=== PATIENT | female | born 1990 | race African-American/Black ===

== ENCOUNTER 2016-09-01 23:33 | Outpatient (CLI) | payer MEDICAID ==
[2016-09-02 00:10] LABS: APPEARANCE,URINE SLIGHTLY-CLOUDY; BILIRUBIN,URINE NEGATIVE (NEGATIVE); GLUCOSE, URINE NEGATIVE (NEGATIVE); KETONES,URINE 80 mg/dL (NEGATIVE); LEUKOCYTE ESTERASE,URINE TRACE (NEGATIVE); NITRITE,URINE NEGATIVE (NEGATIVE); PROTEIN,URINE 100 mg/dL (NEGATIVE); UROBILINOGEN,URINE NEGATIVE mg/dL (<2.0)
[2016-09-02] MEDS ORDERED: RINGERS SOLUTION,LACTATED 1,000 ML IV ONE (00:41)
[2016-09-02] MEDS ORDERED: ONDANSETRON HCL INJ/PF 4 MG/2 ML SDV IV ONE (00:42)
[2016-09-02] MEDS ORDERED: ONDANSETRON HCL INJ/PF 4 MG/2 ML SDV ONE (00:50)
--- NOTE | 2016-09-02 04:46 | L&D Flow Sheet ---
LD Flowsheet Datetime Report Generated by CPN: 09/02/2016 04:45 Datetime: 09/02/2016 03:00 Patient Care Patient Care Comments: Pt in stable, ambulatory condition, off of unit. Care relinquished. (Shelia Ring, RN) Datetime: 09/02/2016 02:55 Teaching Comments: Pt verbalized understanding of discharge materials. Will follow up with [facility] this week at scheduled appointment. Was able to teach back reasons to return/symptoms to report to provider. Patient denies any questions, pain at this time. (Shelia Ring, RN) Datetime: 09/02/2016 02:52 Patient Care Patient Care Comments: 20-guage in left AC from EMS removed. Tip intact, pressure applied, band-aid applied. No redness, swelling or pain noted. (Shelia Ring, RN) Datetime: 09/02/2016 02:51 Uterine Activity Monitor Mode: External; Palpation (Shelia Ring, RN) Frequency (min): x1 (Shelia Ring, RN) Quality: Mild (Shelia Ring, RN) Duration (sec): 50 (Shelia Ring, RN) Resting Tone (Palpate): Relaxed (Shelia Ring, RN) Assessment A Monitor Mode: External US (Shelia Ring, RN) FHR Baseline Rate : 145 (Shelia Ring, RN) Variability: Moderate 6-25 bpm (Shelia Ring, RN) Accelerations: 15X15 (Shelia Ring, RN) Decelerations: None (Shelia Ring, RN) Pain Presence: None/Denies (Shelia Ring, RN) Pain Type: N/A (Shelia Ring, RN) Patient Care Patient Care Comments: Monitors removed to send patient home. (Shelia Ridley, RN) LaborFlag: Antepartum (QS system process) Datetime: 09/02/2016 02:41 Communication Communication: Provider Orders Received; Call/Page Placed to Provider (Shelia Ridley RN) Communication Comments: Call placed to Dr. Loya. Report to include official ultrasound report results, toco data, patient denies any further pain or pressure, FHR. Orders received to send patient home, follow up in the office as scheduled. (Shelia Ring, RN) Datetime: 09/02/2016 02:38 NBP Sys/Vero/Mean (mmHg): 115 (QS system process) : 63 (QS system process) : 81 (QS system process) Pulse: 83 (QS system process) Respirations: 20 (Shelia Ring, RN) Temperature (F): 97.8 (Shelia Ring, RN) Temperature (C): 36.6 (QS system process) Temperature Route: Oral (Shelia Ring, RN) LaborFlag: Antepartum (QS system process) Datetime: 09/02/2016 02:30 Uterine Activity Monitor Mode: External; Palpation (Shelia Ring, RN) Frequency (min): x2 (Shelia Ring, RN) Duration (sec): 40-60 (Shelia Ring, RN) Resting Tone (Palpate): Relaxed (Shelia Ring, RN) Assessment A Monitor Mode: External US (Shelia Ring, RN) FHR Baseline Rate : 145 (Shelia Ring, RN) Variability: Moderate 6-25 bpm (Shelia Ring, RN) Accelerations: None (Shelia Ring, RN) Decelerations: None (Shelia Ring, RN) Datetime: 09/02/2016 02:19 Monitor Interventions for FHR: Ultrasound Adjusted (Shelia Ring, RN) Comments: Audible movement (Shelia Ring, RN) Datetime: 09/02/2016 02:13 Patient Care Patient Care Comments: 1 liter LR finished. IV saline-locked (Shelia Ring, RN) Datetime: 09/02/2016 02:11 Patient Care Patient Care Comments: Pt states feeling "much better" and denies any pelvic pressure. (Shelia Ring, RN) Datetime: 09/02/2016 02:10 Patient Care Patient Care Comments: Extra warm blanket provided (Shelia Ring, RN) Datetime: 09/02/2016 01:42 Uterine Activity Monitor Mode: External; Palpation (Shelia Ring, RN) Frequency (min): none (Shelia Ring, RN) Resting Tone (Palpate): Relaxed (Shelia Ring, RN) Assessment A Monitor Mode: External US (Shelia Ring, RN) FHR Baseline Rate : 135 (Shelia Ring, RN) Variability: Moderate 6-25 bpm (Shelia Ring, RN) Accelerations: 15X15 (Shleia Ring, RN) Decelerations: None (Shelia Ring, RN) Datetime: 09/02/2016 01:33 NBP Sys/Vero/Mean (mmHg): 109 (QS system process) : 60 (QS system process) : 78 (QS system process) Pulse: 88 (QS system process) LaborFlag: Antepartum (QS system process) Datetime: 09/02/2016 01:30 Uterine Activity Monitor Mode: External; Palpation (Shelia Ring, RN) Frequency (min): none (Shelia Ring, RN) Resting Tone (Palpate): Relaxed (Shelia Ring, RN) Assessment A Monitor Mode: External US (Shelia Ring, RN) FHR Baseline Rate : 140 (Shelia Ring, RN) Variability: Moderate 6-25 bpm (Shelia Ring, RN) Accelerations: 15X15 (Shelia Ring, RN) Decelerations: None (Shelia Ring, RN) Datetime: 09/02/2016 01:03 NBP Sys/Vero/Mean (mmHg): 107 (QS system process) : 59 (QS system process) : 77 (QS system process) Pulse: 99 (QS system process) LaborFlag: Antepartum (QS system process) Datetime: 09/02/2016 01:01 Medications Antiemetics/Antacids: Zofran IV (mg) @ 8 (Shelia Ring, RN) Datetime: 09/02/2016 01:00 Uterine Activity Monitor Mode: External; Palpation (Shelia Ring, RN) Frequency (min): x1 with some uterine irritability (Shelia Ring, RN) Quality: Mild (Shelia Ring, RN) Duration (sec): 60 (Shelia Ring, RN) Resting Tone (Palpate): Relaxed (Shelia Ring, RN) Assessment A Monitor Mode: External US (Shelia Ring, RN) FHR Baseline Rate : 145 (Shelia Ring, RN) Variability: Moderate 6-25 bpm (Shelia Ring, RN) Accelerations: 15X15 (Shelia Ring, RN) Decelerations: None (Shelia Ring, RN) Datetime: 09/02/2016 00:50 Monitor Interventions for FHR: Ultrasound Adjusted (Shelia Ring, RN) Patient Care Patient Care Comments: Pt sitting up and vomiting. (Shelia Ring, RN) Datetime: 09/02/2016 00:49 Communication Communication: RN at Bedside (Shelia Ring, RN) Communication Comments: Audible movement. (Shelia Ring, RN) Datetime: 09/02/2016 00:36 Communication Communication: Provider Orders Received; Call/Page Placed to Provider (Shelia Ring, RN) Communication Comments: Call placed to Dr. Loya. Report to include urinalysis, relevant patient history, vital signs, patient complains of n/v/d with some pelvic pressure and back pain, toco data, FHR. Orders received to obtain cervical length, may give 8 mg zofran IV now, bolus 1 liter of LR now via IV infusion. Call provider with results of cervical length. (Shelia Ridley, KRISTEN) Datetime: 09/02/2016 00:33 NBP Sys/Vero/Mean (mmHg): 116 (QS system process) : 68 (QS system process) : 87 (QS system process) Pulse: 93 (QS system process) LaborFlag: Antepartum (QS system process) Datetime: 09/02/2016 00:30 Uterine Activity Monitor Mode: External; Palpation (Shelia Ring, RN) Frequency (min): x1 (Shelia Ring, RN) Quality: Mild (Shelia Ring, RN) Duration (sec): 70 (Shelia Ring, RN) Resting Tone (Palpate): Relaxed (Shelia Ring, RN) Assessment A Monitor Mode: External US (Shelia Ring, RN) FHR Baseline Rate : 145 (Shelia Ring, RN) Variability: Moderate 6-25 bpm (Shelia Ring, RN) Accelerations: 15X15 (Shelia Ring, RN) Decelerations: None (Shelia Ring, RN) Pain Presence: Intermittent (Shelia Ring, RN) Pain Type: Pressure (Shelia Ring, RN) Pain Location: Abdomen; Back (Shelia Ring, RN) Pain Relief Measures: Comfort Measures (Shelia Ring, RN) LaborFlag: Antepartum (QS system process) Datetime: 09/02/2016 00:11 NBP Sys/Vero/Mean (mmHg): 115 (QS system process) : 68 (QS system process) : 86 (QS system process) Pulse: 108 (QS system process) LaborFlag: Antepartum (QS system process) Datetime: 09/02/2016 00:03 NBP Sys/Vero/Mean (mmHg): 145 (QS system process) : 65 (QS system process) : 94 (QS system process) Pulse: 106 (QS system process) Respirations: 20 (Shelia Ring, RN) Temperature (F): 98.1 (Shelia Ring, RN) Temperature (C): 36.7 (QS system process) Temperature Route: Oral (Shelia Ring, RN) LaborFlag: Antepartum (QS system process) Datetime: 09/01/2016 23:52 Vital Signs Stage of : Antepartum (Shelia Ring, RN) Datetime: 09/01/2016 23:45 Pain Pain Scale: 0 (Shelia Ring, RN) Pain Presence: Intermittent (Shelia Ring, RN) Pain Type: Pressure (Shelia Ring, RN) Pain Location: Abdomen; Back (Shelia Ring, RN) Pain Goal: 1 (Shelia Ring, RN) Pain Relief Measures: Comfort Measures (Shelia Ring, RN) Vaginal Exam Membrane Status: Intact (Shelia Ring, RN) Vaginal Bleeding: None (Shelia Ring, RN) Maternal Assessment Level of Consciousness: Fully Conscious (Shelia Ring, RN) DTR's/Clonus: DTRs 2+; No Clonus (Shelia Ring, RN) Headache: Denies (Shelia Ring, RN) Breath Sounds, Left: Clear and Equal (Shelia Ring, RN) Breath Sounds, Right: Clear and Equal (Shelia Ring, RN) Nausea/Vomiting: Present (Annotations: Pt vomiting upon entering room. Pt stated starting at 1800 and daughter has had virus with vomiting) (Shelia Ring, RN) RUQ Epigastric Pain: Denies (Shelia Ring, RN) Teaching Instructional Method: Verbal; Patient Instructed; Verbalized Understanding (Shelia Ring, RN) Plan of Care: Plan of Care Discussed (Shelia Ring, RN) Unit Routine: [place] to Room; Call Alejandre; Bed; Handwashing; Monitoring; Safety/Fall Risk Prevention; Bathroom Privileges (Shelia Ridley RN) Related: Common Discomforts of ; Nutrition; Hydration; Activity and Rest (Shelia Ridley RN)
--- NOTE | 2016-09-02 04:46 | L&D Discharge Summary ---
OB Discharge Summary Datetime Report Generated by CPN: 09/02/2016 04:45 DISCHARGE DIAGNOSIS Diagnosis/Symptoms: False Labor Gestation: 26.3 Number of Babies in Womb: 1 Parity: 2 DIET/ACTIVITY/RESTRICTIONS Diet: Regular TEACHING/INSTRUCTIONS/REFERRALS Instructions Given To: Patient Instructions Understood: Patient Verbalized Understanding; Support Person Verbalized Understanding Referrals: None Educational Materials- Other: - Dehydration and - Gastroenteritis DISCHARGE INFORMATION Discharged AMA: No Discharge Date/Time: 09/02/2016 03:00 Discharged To: Home Discharge Provider Name: Dr. Loya Accompanied By: Self Discharge Method: Ambulatory Condition: Stable FOLLOW UP INFORMATION Follow Up With: [facility] Follow Up On: As Scheduled Follow Up Phone Number: [facility] - Comments: Signs and symptoms to report to provider to include vaginal bleeding, decreased movement, contractions that increase in frequency/duration/intensity, suspected SROM. Pt to follow up in the office as scheduled.
--- NOTE | 2016-09-02 04:46 | L&D Current Admission ---
Current Admit Datetime Report Generated by CPN: 09/02/2016 04:45 ADMISSION INFORMATION Chief Complaint: Back Pain; Nausea; Vomiting (09/01/2016 23:45:Shelia Ring, RN)
--- NOTE | 2016-09-02 04:46 | L&D General Admission ---
General Admit Datetime Report Generated by CPN: 09/02/2016 04:45 INFORMATION Patient Age: 25 (05/30/2016 08:18:QS system process) EDC: 12/05/2016 00:00 (09/01/2016 23:34:Selwyn Stinson RN) : 5 (09/01/2016 23:34:Selwyn Stinson RN) Para: 2 (09/02/2016 02:44:Shelia Ridley RN) Para: 2 (09/01/2016 23:34:Selwyn Stinson RN) Term: 1 (09/01/2016 23:34:Shelia Ridley RN) : 1 (09/01/2016 23:34:Shelia Ridley RN) Spontaneous Abortions: 2 (09/01/2016 23:34:Shelia Ridley RN) Induced Abortions: 0 (09/01/2016 23:34:Shelia Ridley RN) Livin (09/01/2016 23:34:Shelia Ridley RN) Cesareans: 2 (09/01/2016 23:34:Shelia Ring, RN) VBACs: 0 (09/01/2016 23:34:Shelia Ring, RN) Ectopic: 0 (09/01/2016 23:34:Shelia Ring, RN) Multiple Births: 0 (09/01/2016 23:34:Shelia Ring, RN) Baby, Number in Womb: 1 (09/02/2016 02:44:Shelia Ring, RN) Baby, Number in Womb: 1 (09/01/2016 23:34:Shelia Ring, RN) CARE Primary Cost [facility]: [facility] (09/01/2016 23:34:Shelia Ring RN) Month of 1st Visit: March (09/01/2016 23:34:Shelia Ridley RN) Adequate Care: Yes (09/01/2016 23:34:Shelia Ring RN) Height (in): 60 (09/01/2016 23:45:QS system process) ALLERGIES Medication Allergy: No (09/01/2016 23:34:Shelia Ridley RN) Medication Allergies: No Known Allergies (09/01/2016) (09/01/2016 23:44:QS system process) Medication Allergies: No Known Allergies (03/19/2015) (05/30/2016 08:18:QS system process) Latex Allergy: No Latex Allergies (09/01/2016 23:34:Shelia Ridley RN) Food Allergies: None (09/01/2016 23:34:Shelia Ridley RN) Environmental Allergies: None (09/01/2016 23:34:Shelia Ring, RN) COMMUNICATION Primary Language: Malay (09/01/2016 23:34:Shelia Ridley RN) Medical Tx Preferred Language: Malay (09/01/2016 23:34:Shelia Ring RN) Communication Barrier(s): None (09/01/2016 23:34:Shelia Ring, RN) DEMOGRAPHICS Address: [address] [place] [address] (06/20/2016 07:11:QS system process) Address: [address] [facility] [facility], [address] [place] [address] (05/30/2016 08:18:QS system process) Zipcode: [address] (05/30/2016 08:18:QS system process) Home (05/30/2016 08:18:QS system process) SSN: [id number] (05/30/2016 08:18:QS system process) Next of Kin Name: IAN ROQUE (05/30/2016 08:18:QS system process) Next of Kin (06/20/2016 07:11:QS system process) Next of Kin (05/30/2016 08:18:QS system process) Next of Kin Relationship: MO (05/30/2016 08:18:QS system process) Date of : 1990 (05/30/2016 08:18:QS system process) Marital Status: Single (05/30/2016 08:18:QS system process) Sex: Female (05/30/2016 08:18:QS system process) Race: (05/30/2016 08:18:QS system process) Ethnicity: Non- or (05/30/2016 08:18:QS system process) Oriental Orthodox: None (05/30/2016 08:18:QS system process) DRUG AND ALCOHOL USE Alcohol: No (09/01/2016 23:34:Shelia Ridley RN) Cigarettes: Never Smoker. [id number] (09/01/2016 23:34:Shelia Ridley RN) Marijuana: No (09/01/2016 23:34:Shelia Ridley RN) Cocaine: No (09/01/2016 23:34:Shelia Ridley RN) Other Illicit Drugs: No (09/01/2016 23:34:Shelia Ridley RN) VACCINE HISTORY Influenza Vaccine: No (09/01/2016 23:34:Shelia Ridley RN) Pneumococcal Vaccine: No (09/01/2016 23:34:Shelia Ridley RN) Tetanus Vaccine: No (09/01/2016 23:34:Shelia Ridley RN) Tdap Vaccine: Yes (09/01/2016 23:34:Shelia Ridley RN) Hepatitis B Vaccine: Yes (09/01/2016 23:34:Shelia Ridley RN) Grain Sampler: [facility] (09/01/2016 23:34:Shelia Ridley RN) Feeding Preference: Breast (09/01/2016 23:34:Shelia Ridley RN) Benefit of Breast Feed Discussed: Yes (09/01/2016 23:34:Shelia Ridley RN) Circumcision: N/A (09/01/2016 23:34:Shelia Ridley RN) Classes Attended: No (09/01/2016 23:34:Shelia Ridley RN) Tubal Ligation: No (09/01/2016 23:34:Shelia Ridley RN) Tubal Authorization Signed: N/A (09/01/2016 23:34:Shelia Ridley RN) Consent: N/A (09/01/2016 23:34:Shelia Ridley RN) Consent Signed: N/A (09/01/2016 23:34:Shelia Ridley RN) Pain Management Plans: Spinal (09/01/2016 23:34:Shelia Ridley RN) Cultural/Spritual Practice: No (09/01/2016 23:34:Shelia Ridley RN) Spir/Cult Dietary Needs: No (09/01/2016 23:34:Shelia Ridley RN) LIVING SITUATION/DISCHARGE PLAN Living Arrangements: Apartment (09/01/2016 23:34:Shelia Ridley RN) Adequate Access to:: Electric; Heat; Refrigeration; Plumbing/Running water; Phone; Transportation (09/01/2016 23:34:Shelia Ridley RN) WIC Program: Yes (09/01/2016 23:34:Shelia Ridley RN) Discharge Internet Ecommerce Specialist Person: Jason Cummings (09/01/2016 23:34:Shelia Ridley RN) Person to Help after Discharge: Jason Cummings (09/01/2016 23:34:Shelia Ridley RN) Currently Using Commun Resources: Yes (09/01/2016 23:34:Shelia Ridley RN) Specify Current Resource Used: Medicaid, food stamps (09/01/2016 23:34:Shelia Ridley RN) Adoption Requested: No (09/01/2016 23:34:Shelia Ridley RN) Pt Contact w/ Post : N/A (09/01/2016 23:34:Shelia Ridley RN) LABS Blood Type: O Positive (09/01/2016 23:34:Rojorge Martinez) Antibody Screen: Negative (09/01/2016 23:34:Shelia Ridley RN) Hemoglobin: 10.4 L (06/18/2016 10:40:QS system process) Hematocrit: 31.0 L (06/18/2016 10:40:QS system process) MCV: 79 L (06/18/2016 10:40:QS system process) RPR/VDRL: Nonreactive (09/01/2016 23:34:Ro Martinez) HIV Exposure Test: Negative (09/01/2016 23:34:Ro Martinez) Hepatitis B: Negative (09/01/2016 23:34:Shelia Ridley RN) Rubella: Immune (09/01/2016 23:34:Rojorge Martinez) OB/PREVIOUS HISTORY Previous Procedures: Ultrasound; NST; Cerclage (09/01/2016 23:34:Shelia Ridley RN) Current Procedures: Ultrasound; Cerclage (09/01/2016 23:34:Shelia Ridley RN) History of Previous : Yes (09/01/2016 23:34:Shelia Ridley RN) History of Gestational Diabetes: No (09/01/2016 23:34:Shelia Ridley RN) History of PIH: No (09/01/2016 23:34:Shelia Ridley RN) History of Incompetent Cervix: Yes (09/01/2016 23:34:Shelia Ridley RN) History of Placenta Previa/Abrup: No (09/01/2016 23:34:Shelia Ridley RN) History of Macrosomia: No (09/01/2016 23:34:Shelia Ridley RN) History of IUGR: No (09/01/2016 23:34:Shelia Ridley RN) History of Hemorrhage: No (09/01/2016 23:34:Shelia Ridley RN) History of Loss/Stillborn: No (09/01/2016 23:34:Shelia Ridley RN) History of : No (09/01/2016 23:34:Shelia Ridley RN) History of D (Rh) Sensitization: No (09/01/2016 23:34:Shelia Ridley RN) History Recurrent Loss/Stillborn: No (09/01/2016 23:34:Shelia Ridley RN) History Depression/PP Depression: No (09/01/2016 23:34:Shelia Ridley RN) History of Uterine Anomaly/ERIN: No (09/01/2016 23:34:Shelia iRdley RN) History of Infertility: No (09/01/2016 23:34:Shelia Ridley RN) History of ART Treatment: No (09/01/2016 23:34:Shelia Ridley RN) History of ERIN: No (09/01/2016 23:34:Shelia Ridley RN) Comments Obstetrical History: G1: 08/2010- primary c/s in [place] for FTP; male @ 37 weeks, 7#5oz G2: 2011- SAB _8 weeks G3: 05/2013- 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, [facility]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 G4: 01/2014 - repeat c/s at [facility]; female @ 26 weeks- PROM w/cerclage G5: current (cerclage placed 06/20/16; weekly p17 injections) (09/01/2016 23:34:Shelia Ridley RN) MEDICAL HISTORY Med Hx Diabetes: No (09/01/2016 23:34:Shelia Ridley RN) Med Hx Hypertension: No (09/01/2016 23:34:Shelia Ridley RN) Med Hx Heart Disease: No (09/01/2016 23:34:Shelia Ridley RN) Med Hx Autoimmune Disorder: No (09/01/2016 23:34:Shelia Ridley RN) Med Hx Kidney Disease/UTI: No (09/01/2016 23:34:Shelia Ridley RN) Med Hx Neurologic/Epilepsy: No (09/01/2016 23:34:Shelia Ridley RN) Med Hx Psychiatric Disorders: No (09/01/2016 23:34:Shelia Ridley RN) Med Hx Hepatitis/Liver Disease: No (09/01/2016 23:34:Shelia Ridley RN) Med Hx Varicosities/Phlebitis: No (09/01/2016 23:34:Shelia Ridley RN) Med Hx Thyroid Dysfunction: No (09/01/2016 23:34:Shelia Ridley RN) Med Hx Trauma/Violence: No (09/01/2016 23:34:Shelia Ridley RN) Med Hx Blood Transfusion: No (09/01/2016 23:34:Shelia Ridley RN) Med Hx Pulmonary (Asthma,TB): Yes (09/01/2016 23:34:Shelia Ridley RN) Med Hx Breast: No (09/01/2016 23:34:Shelia Ridley RN) Med Hx DRYWALL APPLICATOR Surgery: No (09/01/2016 23:34:Shelia Ridley RN) Med Hx Hospitalization/Surgery: Yes (09/01/2016 23:34:Shelia Ridley RN) Med Hx Anesthetic Complications: No (09/01/2016 23:34:Shelia Ridley RN) Med Hx Abnormal Pap Smear: No (09/01/2016 23:34:Shelia Ridley RN) Other Medical Diseases: No (09/01/2016 23:34:Shelia Ridley RN) Med Hx Significant Family Hx: No (09/01/2016 23:34:Shelia Ridley RN) Details of Med/Surg Hx: asthma (no inhaler needed currently); prior c/s x2 (09/01/2016 23:34:Shelia Ridley RN) INFECTIOUS HISTORY Inf Hx Gonorrhea: Yes (09/01/2016 23:34:Shelia Ridley RN) Inf Hx Chlamydia: Yes (09/01/2016 23:34:Shelia Ridley RN) Inf Hx Syphilis: No (09/01/2016 23:34:Shelia Ridley RN) Inf Hx HIV/AIDS: No (09/01/2016 23:34:Shelia Ridley RN) Inf Hx Human Papilloma Virus: No (09/01/2016 23:34:Shelia Ridley RN) Inf Hx Pt/Partner Genital Herpes: No (09/01/2016 23:34:Shelia Ridley RN) Inf Hx Tuberculosis/Exposure: No (09/01/2016 23:34:Shelia Ridley RN) Inf Hx Hepatitis B,C: No (09/01/2016 23:34:Shelia Ridley RN) Inf Hx Rash or Viral Illness: No (09/01/2016 23:34:Shelia Ridley RN) Details of Infectious Hx: gonorrhea in 2010 (treated); chlamydia in 2010 (treated) (09/01/2016 23:34:Shelia Ridley RN) GENETIC HISTORY Gen Hx Age >=35 at [place]: No (09/01/2016 23:34:Shelia Ridley RN) Gen Hx Thalassemia: No (09/01/2016 23:34:Shelia Ridley RN) Gen Hx Congenital Heart Defect: No (09/01/2016 23:34:Shelia Ridley RN) Gen Hx Neural Tube Defect: No (09/01/2016 23:34:Shelia Ridley RN) Gen Hx Down's Syndrome: No (09/01/2016 23:34:Shelia Ridley RN) Gen Hx David-Sachs: No (09/01/2016 23:34:Shelia Ridley RN) Gen Hx Bradley: No (09/01/2016 23:34:Shelia Ridley RN) Gen Hx Familial Dysautonomia: No (09/01/2016 23:34:Shelia Ridley RN) Gen Hx Sickle Cell Disease/Trait: No (09/01/2016 23:34:Shelia Ridley RN) Gen Hx Hemophilia/Blood Disorder: No (09/01/2016 23:34:Shelia Ridley RN) Gen Hx Muscular Dystrophy: No (09/01/2016 23:34:Shelia Ridley RN) Gen Hx Cystic Fibrosis: No (09/01/2016 23:34:Shelia Ridley RN) Gen Hx Huntingtons Chorea: No (09/01/2016 23:34:Shelia Ridley RN) Gen Hx Mental Retardation/Autism: No (09/01/2016 23:34:Shelia Ridley RN) Gen Hx Tested for Fragile X: No (09/01/2016 23:34:Shelia Ridley RN) Gen Hx Maternal Metabolic DO: No (09/01/2016 23:34:Shelia Ridley RN) Gen Hx Pt Father or FOB Defect: No (09/01/2016 23:34:Shelia Ridley RN) Gen Hx Other Genetic History: No (09/01/2016 23:34:Shelia Ridley RN) Gen Hx Drugs/Meds since LMP: Yes (09/01/2016 23:34:Shelia Ridley RN) Gen Hx Medications: PNV, flagyl, iron, albuterol (09/01/2016 23:34:Shelia Ridley RN)
--- NOTE | 2016-09-02 04:46 | Antepartum Discharge Summary ---
Antepartum DC Datetime Report Generated by CPN: 09/02/2016 04:45 DIET/ACTIVITY/RESTRICTIONS Diet: Regular (09/02/2016 02:44:Shelia Ring, RN) TEACHING/INSTRUCTIONS/REFERRALS Instructions Given To: Patient (09/02/2016 02:44:Shelia Ridley RN) Instructions Understood: Patient Verbalized Understanding; Support Person Verbalized Understanding (09/02/2016 02:44:Shelia Ridley RN) Referrals: None (09/02/2016 02:44:Shelia Ridley RN) Educational Materials- Other: - Dehydration and - Gastroenteritis (09/02/2016 02:44:Shelia Ridley RN) DISCHARGE INFORMATION Discharged AMA: No (09/02/2016 02:44:Shelia Ridley RN) Discharge Date/Time: 09/02/2016 03:00 (09/02/2016 02:44:Shelia iRdley RN) Discharged To: Home (09/02/2016 02:44:Shelia Ridley RN) Discharge Provider Name: Dr. Loya (09/02/2016 02:44:Shelia Ridley RN) Accompanied By: Self (09/02/2016 02:44:Shelia Ridley RN) Discharge Method: Ambulatory (09/02/2016 02:44:Shelia Ridley RN) Condition: Stable (09/02/2016 02:44:Shelia Ridley RN) FOLLOW UP INFORMATION Follow Up With: [facility] (09/02/2016 02:44:Shelia Ridley RN) Follow Up On: As Scheduled (09/02/2016 02:44:Shelia Ridley RN) Follow Up Phone Number: [facility] - (09/02/2016 02:44:Shelia Ridley RN) Comments: Signs and symptoms to report to provider to include vaginal bleeding, decreased movement, contractions that increase in frequency/duration/intensity, suspected SROM. Pt to follow up in the office as scheduled. (09/02/2016 02:44:Shelia Ridley RN)
--- NOTE | 2016-09-02 04:46 | L&D Admission Assessment ---
LD ADM ASMT Datetime Report Generated by CPN: 09/02/2016 04:45 PATIENT ASSESSMENT Assessment Type: Triage (09/01/2016 23:45:Shelia Ring, RN) WEIGHT Weight (lb): 141 (09/01/2016 23:45:QS system process) Weight (kg): 64.1 (09/01/2016 23:45:QS system process) PAIN Pain Scale: 0 (09/01/2016 23:45:Shelia Ring, RN) Pain Presence: None/Denies (09/02/2016 02:51:Shelia Ring, RN) Pain Presence: Intermittent (09/02/2016 00:30:Shelia Ring, RN) Pain Presence: Intermittent (09/01/2016 23:45:Shelia Ring, RN) Pain Type: N/A (09/02/2016 02:51:Shelia Ring, RN) Pain Type: Pressure (09/02/2016 00:30:Shelia Ring, RN) Pain Type: Pressure (09/01/2016 23:45:Shelia Ring, RN) Pain Location: Abdomen; Back (09/02/2016 00:30:Shelia Ring, RN) Pain Location: Abdomen; Back (09/01/2016 23:45:Shelia Ring, RN) Pain Goal: 1 (09/01/2016 23:45:Shelia Ring, RN) Pain Related to Contraction: Unsure (09/01/2016 23:45:Shelia Ring, RN) CONTRACTIONS Frequency (min): x1 (09/02/2016 02:51:Shelia Ring, RN) Frequency (min): x2 (09/02/2016 02:30:Shelia Ring, RN) Frequency (min): none (09/02/2016 01:42:Shelia Ring, RN) Frequency (min): none (09/02/2016 01:30:Shelia Ring, RN) Frequency (min): x1 with some uterine irritability (09/02/2016 01:00:Shelia Ring, RN) Frequency (min): x1 (09/02/2016 00:30:Shelia Ring, RN) Duration (sec): 50 (09/02/2016 02:51:Shelia Ring, RN) Duration (sec): 40-60 (09/02/2016 02:30:Shelia Ring, RN) Duration (sec): 60 (09/02/2016 01:00:Shelia Ring, RN) Duration (sec): 70 (09/02/2016 00:30:Shelia Ring, RN) Quality: Mild (09/02/2016 02:51:Shelia Ring, RN) Quality: Mild (09/02/2016 01:00:Shelia Ring, RN) Quality: Mild (09/02/2016 00:30:Shelia Ring, RN) Resting Tone [place]: Relaxed (09/02/2016 02:51:Shelia Ring, RN) Resting Tone [place]: Relaxed (09/02/2016 02:30:Shelia Ring, RN) Resting Tone [place]: Relaxed (09/02/2016 01:42:Shelia Ring, RN) Resting Tone [place]: Relaxed (09/02/2016 01:30:Shelia Ring, RN) Resting Tone [place]: Relaxed (09/02/2016 01:00:Shelia Ring, RN) Resting Tone [place]: Relaxed (09/02/2016 00:30:Shelia Ring, RN) VAGINAL EXAM Membranes Status: Intact (09/01/2016 23:45:Shelia Ring, RN) NEURO Level of Consciousness: Fully Conscious (09/01/2016 23:45:Shelia Ring, RN) DTR's/Clonus: DTRs 2+; No Clonus (09/01/2016 23:45:Shelia Ring, RN) Headache: Denies (09/01/2016 23:45:Shelia Ring, RN) Dizziness: No (09/01/2016 23:45:Shelia Ring, RN) Blurred Vision: No (09/01/2016 23:45:Shelia Ring, RN) Extremity Numbness/Tingling : None (09/01/2016 23:45:Shelia Ring, RN) Extremity Movement: Full Range of Motion (09/01/2016 23:45:Shelia Ring, RN) CARDIOVASCULAR Heart Rhythm: Regular (09/01/2016 23:45:Shelia Ring, RN) Nailbeds: [place] (09/01/2016 23:45:Shelia Ring, RN) Capillary Refill: Less than 3 Seconds (09/01/2016 23:45:Shelia Ring, RN) Lower Extremities Edema: None (09/01/2016 23:45:Shelia Ring, RN) Upper Extremities Edema: None (09/01/2016 23:45:Shelia Ring, RN) Upper Extremities Edema Degree: None (09/01/2016 23:45:Shelia Ring, RN) Facial Edema: None (09/01/2016 23:45:Shelia Ring, RN) Mamta's Sign Left Leg: Negative (09/01/2016 23:45:Shelia Ring, RN) Mamta's Sign Right Leg: Negative (09/01/2016 23:45:Shelia Ring, RN) DVT RISK ASSESSMENT DVT Risk Age: Age less than 41 years (09/01/2016 23:45:Shelia Ring, RN) DVT Risk BMI: BMI<31 (09/01/2016 23:45:Shelia Ring, RN) DVT Risk Surgery: History of Prior Major Surgery (Annotations: 2 prior c-sections) (09/01/2016 23:45:Shelia Ring, RN) RESPIRATORY Respiratory Effort: Unlabored; Regular Rhythm; Equal Expansion (09/01/2016 23:45:Shelia Ring, RN) Breath Sounds, Left: Clear and Equal (09/01/2016 23:45:Shelia Ring, RN) Breath Sounds, Right: Clear and Equal (09/01/2016 23:45:Shelia Ring, RN) Cough Productivity: None (09/01/2016 23:45:Shelia Ring, RN) GASTROINTESTINAL Nausea/Vomiting: Present (Annotations: Pt vomiting upon entering room. Pt stated starting at 1800 and daughter has had virus with vomiting) (09/01/2016 23:45:Shelia Ring, RN) Bowel Sounds: Normoactive; All Quadrants (09/01/2016 23:45:Shelia Ring, RN) RUQ Epigastric Pain: Denies (09/01/2016 23:45:Shelia Ring, RN) Bowel Patterns: Diarrhea (09/01/2016 23:45:Shelia Ring, RN) Hemorrhoids: None (09/01/2016 23:45:Shelia Ring, RN) Diet Type: Regular diet (09/01/2016 23:45:Shelia Ring, RN) Last Meal: 09/01/2016 17:00 (09/01/2016 23:45:Shelia Ring, RN) GENITOURINARY Bladder: Nondistended (09/01/2016 23:45:Shelia Ring, RN) Frequency of Urination: No (09/01/2016 23:45:Shelia Ring, RN) Urination Burning: No (09/01/2016 23:45:Shelia Ring, RN) CVA Tenderness: No (09/01/2016 23:45:Shelia Ring, RN) Vaginal Bleeding: None (09/01/2016 23:45:Shelia Ring, RN) Vaginal Discharge Amount: None (09/01/2016 23:45:Shelia Ring, RN) Vaginal Discharge Color: N/A (09/01/2016 23:45:Shelia Ring, RN) Vaginal Discharge Character: None (09/01/2016 23:45:Shelia Ring, RN) INTEGUMENTARY Skin Color: Normal for Race (09/01/2016 23:45:Shelia Ring, RN) Skin Temperature: Cool (09/01/2016 23:45:Shelia Ring, RN) Skin Moisture: Dry (09/01/2016 23:45:Shelia Ring, RN) Surgical Scars: prior c-sections (09/01/2016 23:45:Shelia Ring, RN) Body Piercings/Tattoos: face, nose (09/01/2016 23:45:Shelia Ring, RN) MOMO SKIN ASSESSMENT Momo Scale Sensory Perception: No Impairment- Responds to verbal commands. Has no sensory deficit which would limit ability to feel or voice pain or discomfort (09/01/2016 23:45:Shelia Ridley RN) Momo Scale Moisture: Rarely Moist- Skin is usually dry. Linen only requires changing at routine intervals (09/01/2016 23:45:Shelia Ridley RN) Momo Scale Activity: Walks Frequently- Walks outside the room at least twice a day and inside room at least every 2 hours during the day. (09/01/2016 23:45:Shelia Ridley RN) Momo Scale Mobility: No Limitations- Makes major and frequent changes in position without assistance (09/01/2016 23:45:Shelia Ridley RN) Momo Scale Nutrition: Adequate- Eats over half of most meals. Eats a total of 4 servings of protein (meat, dairy products) each day. Occasionally will refuse a meal but will usually take a supplement if offered OR is on a tube feeding or TPN regimen which probably meets most of nutritional needs (09/01/2016 23:45:Shelia Ridley RN) Momo Scale Friction and Shear: No Apparent Problem- Moves in bed and in chair independently and has sufficient muscle strength to lift up completely during move. Maintains good position in bed or chair at all times (09/01/2016 23:45:Shelia Ridley RN) Momo Scale Total: 22 (09/01/2016 23:45:QS system process) Momo Scale Risk: No Risk of Pressure Ulcer Noted at this Time (09/01/2016 23:45:QS system process) SUPPORT Emotional State: Calm/Relaxed (09/01/2016 23:45:Shelia Ring, RN) SAFETY Call Alejandre Within Reach: Yes (09/01/2016 23:45:Shelia Ring, RN) Side Rails Up: Yes (09/01/2016 23:45:Shelia Ring, RN) Bed Wheels Locked: Yes (09/01/2016 23:45:Shelia Ring, RN) Arm Bands Present: Yes (09/01/2016 23:45:Shelia Ring, RN) Isolation: Contact (Annotations: Due to patient complaints of nausea/vomiting/diarrhea) (09/01/2016 23:45:Shelia Ring, RN) FALL SCREEN Fall Risk History of Falling: (0) No (09/01/2016 23:45:Shelia Ring, RN) Fall Risk Secondary Diagnosis: (0) No (09/01/2016 23:45:Shelia Ridley RN) Fall Risk Ambulatory Aid: (0) None/Bedrest/Wheelchair/Nurse Assist (09/01/2016 23:45:Shelia Ridley RN) Fall Risk IV Therapy: (0) No (09/01/2016 23:45:Shelia Ridley RN) Fall Risk Gait: (0) Normal/Bedrest/Immobile (09/01/2016 23:45:Shelia Ridley RN) Fall Risk Mental Status: (0) Oriented to Own Ability (09/01/2016 23:45:Shelia Ridley RN) Fall Risk Score: 0 (09/01/2016 23:45:QS system process) Fall Risk Score Definition: No Risk: No action required (09/01/2016 23:45:QS system process) RECENT TRAVEL/INFECTIOUS DISEASE Recent Exp Communicable Disease: No (09/01/2016 23:45:Shelia Ridley RN) Cough or Fever: No (09/01/2016 23:45:Shelia Ridley RN) Foreign Travel Past 10 Days: No (09/01/2016 23:45:Shelia Ridley RN) Open Wounds or Sores: No (09/01/2016 23:45:Shelia Ridley RN) Prior Antibiotic Resistance Tx: No (09/01/2016 23:45:Shelia Ridley RN) Cultures Obtained: Not Applicable (09/01/2016 23:45:Shelia Ridley RN) Isolation Initiated: No (09/01/2016 23:45:Shelia Ridley RN) Pt/Family Education: Handwashing Hygiene (09/01/2016 23:45:Shelia Ring, RN) Infectious Disease Comments: Pt placed on precautionary contact d/t symptoms of infectious gastroenteritis (09/01/2016 23:45:Shelia Ring, RN) BABY A FHR Baseline Rate (bpm) Baby A: 145 (09/02/2016 02:51:Shelia Ring, RN) FHR Baseline Rate (bpm) Baby A: 145 (09/02/2016 02:30:Shelia Ring, RN) FHR Baseline Rate (bpm) Baby A: 135 (09/02/2016 01:42:Shelia Ring, RN) FHR Baseline Rate (bpm) Baby A: 140 (09/02/2016 01:30:Shelia Ring, RN) FHR Baseline Rate (bpm) Baby A: 145 (09/02/2016 01:00:Shelia Ring, RN) FHR Baseline Rate (bpm) Baby A: 145 (09/02/2016 00:30:Shelia Ring, RN) Variability Baby A: Moderate 6-25 bpm (09/02/2016 02:51:Shelia Ring, RN) Variability Baby A: Moderate 6-25 bpm (09/02/2016 02:30:Shelia Ring, RN) Variability Baby A: Moderate 6-25 bpm (09/02/2016 01:42:Shelia Ring, RN) Variability Baby A: Moderate 6-25 bpm (09/02/2016 01:30:Shelia Ring, RN) Variability Baby A: Moderate 6-25 bpm (09/02/2016 01:00:Shelia Ring, RN) Variability Baby A: Moderate 6-25 bpm (09/02/2016 00:30:Shelia Ring, RN) Accelerations Baby A: 15X15 (09/02/2016 02:51:Shelia Ring, RN) Accelerations Baby A: None (09/02/2016 02:30:Shelia Ridley RN) Accelerations Baby A: 15X15 (09/02/2016 01:42:Shelia Ridley RN) Accelerations Baby A: 15X15 (09/02/2016 01:30:Shelia Ridley RN) Accelerations Baby A: 15X15 (09/02/2016 01:00:Shelia Ridley RN) Accelerations Baby A: 15X15 (09/02/2016 00:30:Shelia Ridley RN) Decelerations Baby A: None (09/02/2016 02:51:Shelia Ridley RN) Decelerations Baby A: None (09/02/2016 02:30:Shelia Ridley RN) Decelerations Baby A: None (09/02/2016 01:42:Shelia Ridley RN) Decelerations Baby A: None (09/02/2016 01:30:Shelia Ridley RN) Decelerations Baby A: None (09/02/2016 01:00:Shelia Ridley RN) Decelerations Baby A: None (09/02/2016 00:30:Shelia Ridley RN)
[2016-09-04 15:07] LABS: URINE BARBITURATES SCREEN NEGATIVE; URINE METHADONE SCREEN NEGATIVE; URINE PHENCYCLIDINE SCREEN NEGATIVE
== END 2016-09-02 03:00 | disposition home or self-care (01) ==
LOC: LC 23:33
PROVIDERS: ATTEND Obstetrics & Gynecology
PROC: 4A1HXCZ Monitoring of Products of Conception, Cardiac Rate, External Approach (ICD-10-PCS; principal; 2016-09-01)
DX: O47.02 False labor before 37 completed weeks of gestation, second trimester (principal); Z3A.26 26 weeks gestation of pregnancy
CPT/HCPCS: 59899; 81001; 80307; 76815; J2405

== ENCOUNTER 2016-10-28 13:54 | Outpatient (CLI) | payer MEDICAID ==
[2016-10-28 14:32] LABS: AMORPHOUS SEDIMENT,URINE TRACE /HPF; APPEARANCE,URINE CLOUDY; BILIRUBIN,URINE NEGATIVE (NEGATIVE); GLUCOSE, URINE NEGATIVE (NEGATIVE); KETONES,URINE NEGATIVE (NEGATIVE); LEUKOCYTE ESTERASE,URINE LARGE (NEGATIVE); NITRITE,URINE NEGATIVE (NEGATIVE); PROTEIN,URINE NEGATIVE (NEGATIVE); URINE SPECIFIC GRAVITY 1.016
[2016-10-28 14:51] LABS: URINE BARBITURATES SCREEN NEGATIVE; URINE METHADONE SCREEN NEGATIVE; URINE OPIATES LOW NEGATIVE; URINE PHENCYCLIDINE SCREEN NEGATIVE
--- NOTE | 2016-10-28 15:05 | Non Stress Test Report ---
Non Stress Test Datetime Report Generated by CPN: 10/28/2016 15:05 DEMOGRAPHIC EGA NST: 34.4 INDICATION Indication for Study: Ordered by Provider MONITORING Monitor Explained: Monitor Explained; Test Explained; Patient Verbalized Understanding Time on Monitor: 10/28/2016 14:28 Time off Monitor: 10/28/2016 15:04 NST Duration: 36 NST INTERVENTIONS NST Interventions: PO Hydration; Reposition Patient Physician Notified NST: Dr.Tavares BABY A: [id number] BABY A Movement : Present Contraction Frequency : 0 FHR Baseline : 135 Accelerations : 15X15 Decelerations : None Variability : Moderate 6-25bpm NST Review: Meets Criteria for Reactive NST NST Review and Verified By : KRISTEN Robertson Results: Reactive NST REPORT Report Trigger: Send Report
== END 2016-10-28 15:28 | disposition home or self-care (01) ==
LOC: LC 13:54
PROVIDERS: ATTEND Obstetrics & Gynecology
PROC: 4A1HXCZ Monitoring of Products of Conception, Cardiac Rate, External Approach (ICD-10-PCS; principal; 2016-10-28)
DX: Z34.93 Encounter for supervision of normal pregnancy, unspecified, third trimester (principal); Z36 Encounter for antenatal screening of mother; Z3A.34 34 weeks gestation of pregnancy
CPT/HCPCS: 59025; 80307; 81001

== ENCOUNTER 2016-10-30 11:46 | Outpatient (CLI) | payer MEDICAID ==
--- NOTE | 2016-10-30 12:00 | L&D Flow Sheet ---
LD Flowsheet Datetime Report Generated by CPN: 10/30/2016 12:00 Datetime: 10/30/2016 11:55 Frequency (min): irregular (Jud Camp, RNC) Vaginal Bleeding: None (Jud Camp, RNC) Level of Consciousness: Fully Conscious (Jud Camp, RNC) DTR's/Clonus: DTRs 2+; No Clonus (Jud Camp, RNC) Headache: Denies (Jud Camp, RNC) Breath Sounds, Left: Clear and Equal (Jud Camp, RNC) Breath Sounds, Right: Clear and Equal (Jud Camp, RNC) Nausea/Vomiting: Denies (Ujd Camp, RNC) RUQ Epigastric Pain: Denies (Jud Camp, RNC) Datetime: 10/30/2016 11:51 NBP Sys/Vero/Mean (mmHg): 95 (QS system process) : 59 (QS system process) : 69 (QS system process) Pulse: 70 (QS system process) LaborFlag: Antepartum (QS system process)
[2016-10-30 12:05] LABS: APPEARANCE,URINE SLIGHTLY-CLOUDY; BILIRUBIN,URINE NEGATIVE (NEGATIVE); GLUCOSE, URINE NEGATIVE (NEGATIVE); KETONES,URINE TRACE mg/dL (NEGATIVE); LEUKOCYTE ESTERASE,URINE TRACE (NEGATIVE); NITRITE,URINE NEGATIVE (NEGATIVE); PROTEIN,URINE NEGATIVE (NEGATIVE); URINE SPECIFIC GRAVITY 1.009; UROBILINOGEN,URINE NEGATIVE mg/dL (<2.0)
[2016-10-30 12:24] LABS: URINE BARBITURATES SCREEN NEGATIVE; URINE METHADONE SCREEN NEGATIVE; URINE OPIATES LOW NEGATIVE; URINE PHENCYCLIDINE SCREEN NEGATIVE
== END 2016-10-30 13:02 | disposition home or self-care (01) ==
LOC: LC 11:46
PROVIDERS: ATTEND Obstetrics & Gynecology
PROC: 4A1HXCZ Monitoring of Products of Conception, Cardiac Rate, External Approach (ICD-10-PCS; principal; 2016-10-30)
DX: Z34.93 Encounter for supervision of normal pregnancy, unspecified, third trimester (principal); Z36 Encounter for antenatal screening of mother; Z3A.34 34 weeks gestation of pregnancy
CPT/HCPCS: 59025; 80307; 81001

== ENCOUNTER 2016-11-15 09:41 | Inpatient (IN) | payer MEDICAID ==
[~2016-11-15 09:41] MED LIST: LIDOCAINE 2% INJ-PF (20 MG/ML) 10 ML AMPUL ONE; ONDANSETRON HCL INJ/PF 4 MG/2 ML SDV ONE
[2016-11-15 10:13] LABS: AMNISURE (ROM) POSITIVE (NEGATIVE)
[2016-11-15] MEDS ORDERED: RINGERS SOLUTION,LACTATED 1,000 ML IV ONE (10:21)
[2016-11-15 10:23] LABS: APPEARANCE,URINE CLOUDY; BILIRUBIN,URINE NEGATIVE (NEGATIVE); GLUCOSE, URINE NEGATIVE (NEGATIVE); KETONES,URINE NEGATIVE (NEGATIVE); LEUKOCYTE ESTERASE,URINE LARGE (NEGATIVE); NITRITE,URINE NEGATIVE (NEGATIVE); PROTEIN,URINE 30 mg/dL (NEGATIVE); UROBILINOGEN,URINE NEGATIVE mg/dL (<2.0)
[2016-11-15 10:33] LABS: URINE BARBITURATES SCREEN NEGATIVE; URINE METHADONE SCREEN NEGATIVE; URINE OPIATES LOW NEGATIVE; URINE PHENCYCLIDINE SCREEN NEGATIVE
[2016-11-15 10:52] LABS: ABSOLUTE EOSINOPHILS # (AUTO) 0.1 10^3/uL (0.0-0.6); ABSOLUTE LYMPHOCYTES (AUTO) 1.2 10^3/uL (0.5-4.7); ABSOLUTE MONOCYTES (AUTO) 0.6 10^3/uL (0.1-1.4); ABSOLUTE NEUT (AUTO) 8.3 10^3/uL (1.7-8.2); BASOPHILS % (AUTO) 0.2 % (0-2); EOSINOPHILS % (AUTO) 1.3 % (0-6); HEMATOCRIT 32.8 % (36.0-47.0); HEMOGLOBIN 11.2 g/dL (12.0-15.5); HGB HCT DIFFERENCE 0.8; LYMPHOCYTES % (AUTO) 11.8 % (13-45); MEAN CORPUSCULAR HEMOGLOBIN 28.4 pg (27.0-33.4); MEAN CORPUSCULAR VOLUME 84 fl (80-97); RED BLOOD COUNT 3.92 10^6/uL (3.72-5.28); RED CELL DISTRIBUTION WIDTH 15.1 % (11.5-14.0); SEGMENTED NEUTROPHILS % (AUTO) 80.7 % (42-78); WHITE BLOOD COUNT 10.3 10^3/uL (4.0-10.5)
[2016-11-15] MEDS ORDERED: OXYTOCIN/NORMAL SALINE 20 UNIT/1,000 ML RTUINJ ONE (11:08)
[2016-11-15] MEDS ORDERED: OXYTOCIN 10 UNIT/ML VIAL ONE (11:08)
[2016-11-15] MEDS ORDERED: MIDAZOLAM 2 MG/2 ML INJ ONE (11:09)
[2016-11-15] MEDS ORDERED: ONDANSETRON HCL INJ/PF 4 MG/2 ML SDV ONE ×2 (11:09→21:11)
[2016-11-15] MEDS ORDERED: PHENYLEPHRINE HCL INJ/PF 10 MG/1 ML SDV ONE (11:09)
[2016-11-15] MEDS ORDERED: CEFAZOLIN 2 GM/D5W RTU 2 GM/50 ML RTUPB IV ONE (11:13)
[2016-11-15] MEDS ORDERED: CITRIC ACID/SODIUM CITRATE ORAL SOLN 15 ML UDCUP ONE (11:13)
[2016-11-15] MEDS ORDERED: FENTANYL CITRATE INJ/PF 100 MCG/2 ML AMPUL ONE ×2 (13:13→15:28)
[2016-11-15] MEDS ORDERED: PROPOFOL INJ 200 MG/20 ML VIAL IV ONE (13:56)
[2016-11-15] MEDS ORDERED: HYDROMORPHONE HCL INJ/PF 2 MG/ML AMPULE IV PRN (14:29)
[2016-11-15] MEDS ORDERED: OXYTOCIN/NORMAL SALINE 1,000 ML IV PRN (14:29)
[2016-11-15] MEDS ORDERED: SIMETHICONE 80 MG TAB.CHEW PO PRN (14:29)
[2016-11-15] MEDS ORDERED: OXYCODONE-ACETAMINOPHEN 5-325 MG TABLET PO PRN (14:29)
[2016-11-15] MEDS ORDERED: MEASLES,MUMPS&RUBELLA VACC/PF 0.5 ML VIAL SUBCUT PRN (14:29)
[2016-11-15] MEDS ORDERED: ACETAMINOPHEN 325 MG TABLET PO PRN (14:29)
[2016-11-15] MEDS ORDERED: PROMETHAZINE HCL INJ 25 MG/1 ML VIAL IV PRN ×2 (14:29→15:22)
[2016-11-15] MEDS ORDERED: DIPH/PERTUSS(ACELL)/TETANUS VAC/PF 0.5 ML SYR (>=10YO) IM PRN (14:29)
--- NOTE | 2016-11-15 14:29 | Brief Operative Note ---
BRIEF OPERATIVE REPORT DATE OF SURGERY: 11/15/16 TIME OF SURGERY: 02:15 PREOPERATIVE DIAGNOSIS: H/o LTCS. H/o Classical Incision, PPROM at 36+4ega, Incompetent Cervix POSTOPERATIVE DIAGNOSIS: Same as above delivered, possible cervical septum versus cervical tear from cerclage SURGEON: ASHUTOSH CHANDRA FINDINGS: VFI, 6#10oz, Apgars 8/9, very thin classical scar. COMPLICATIONS: none ESTIMATED BLOOD LOSS: 700ml TISSUE REMOVED OR ALTERED: placental and cord TECHNICAL PROCEDURE: Repeat ELTCS, Cerclage removal, Scar revision.
[2016-11-15] MEDS ORDERED: MORPHINE SULFATE 10 MG/ML INJ ONE (14:35)
[2016-11-15] MEDS ORDERED: KETOROLAC TROMETHAMINE INJ/PF 30 MG/1 ML SDV ONE (14:55)
[2016-11-15] MEDS ORDERED: FENTANYL CITRATE INJ/PF 100 MCG/2 ML AMPUL IV PRN ×3 (15:22)
[2016-11-15] MEDS ORDERED: MORPHINE SULFATE 10 MG/ML INJ IV PRN (15:22)
[2016-11-15] MEDS ORDERED: MEPERIDINE HCL/PF INJ 25 MG/1 ML DISP.SYRIN IV PRN (15:22)
[2016-11-15] MEDS ORDERED: DIPHENHYDRAMINE HCL 50 MG/ML VIAL IV PRN (15:22)
[2016-11-15] MEDS ORDERED: MEPERIDINE HCL/PF INJ 25 MG/1 ML DISP.SYRIN ONE (15:28)
[2016-11-15] MEDS ORDERED: METOCLOPRAMIDE HCL INJ/PF 10 MG/2 ML SDV IV ONE (15:56)
[2016-11-15] MEDS ORDERED: METOCLOPRAMIDE HCL INJ/PF 10 MG/2 ML SDV ONE (15:57)
--- NOTE | 2016-11-15 16:03 | Operative Report ---
Operative Report DATE OF SURGERY: 11/15/16 PREOPERATIVE DIAGNOSIS: H/o LTCS. H/o Classical Incision, PPROM at 36+4ega, Incompetent Cervix, transverse presentation, cerclage in place POSTOPERATIVE DIAGNOSIS: Same as above delivered, possible cervical septum versus cervical tear from cerclage OPERATION: Repeat ELTCS, Cerclage removal, Scar revision. SURGEON: ASHUTOSH CHANDRA ANESTHESIA: Spinal TISSUE REMOVED OR ALTERED: placental and cord COMPLICATIONS: None ESTIMATED BLOOD LOSS: 700ml INTRAOPERATIVE FINDINGS: VFI, 6#10oz, Apgars 8/9, very thin classical scar. PROCEDURE: Anesthesia provider: [Dr. Yanez, Wai Hammer PULVERIZER FEEDER, Poornima Bautista PULVERIZER FEEDER, Rylee Bautista PULVERIZER FEEDER] Estimated blood loss: [700 mL] Urine output: [500 mL] IV fluids: [2000 mL] Complications: [None] Specimens: [Placenta and cord] Findings: [Viable female Apgars 8 and 9 weight 6 lbs. 10 oz., Transverse presentation (feet and arms down) and uterine entry, omentum scarred to the anterior abdominal wall, prior classical incision noted on the anterior surface of the uterus with a very thin classical uterine incision scar with the thinnest portion at the uterine fundus, normal bilateral fallopian tubes, normal bilateral ovaries.] Indications: [26-year-old at 36+4 weeks estimated gestational age who presented for PPROM at approximately 09:30 this morning. The patient is known to have a history of incompetent cervix and had a cerclage placed with this at approximately 15 weeks gestation. also complicated by history of an 18 week loss followed by 26 week repeat due to PPROM with cerclage in place. The risks benefits and alternatives to repeat section were reviewed with the patient and the patient desired to proceed with planned procedure. The patient declines bilateral tubal ligation and desires to have Depo-Provera for contraception ] Procedure: The patient was taken to the operating room where spinal anesthesia was obtained and found to be adequate. She was then prepped and draped in the normal sterile fashion and placed in the dorsal supine position with a leftward tilt. The prior thickened Pfannenstiel uterine scar was excised in the usual fashion. The Pfannenstiel skin incision was then made and carried through to the underlying layers of the fascia with the scalpel. The fascia was incised in the midline and the incision extended laterally with the Mendoza scissors. The superior aspect of the fascial incision was then grasped with Republic clamps elevated and the underlying rectus muscles dissected off [bluntly]. Attention was then turned to the inferior aspect of the fascial incision which in a similar fashion was grasped, tented up with Bri clamps, and the rectus muscles dissected off [bluntly]. The rectus muscles were then in the midline and the peritoneum at the amount identified and entered [bluntly]. The peritoneal incision was then extended superiorly and inferiorly with good visualization of the bladder. The bladder blade was inserted and the vesicouterine peritoneum identified grasped with [place] pickups and entered sharply with the Metzenbaum scissors. This incision was then extended laterally with the Metzenbaum scissors and a bladder flap created digitally. The bladder blade was then reinserted and the lower uterine segment incised in a transverse fashion with the scalpel. The uterine incision was then extended bluntly. The bladder blade was removed and the infant's head was delivered from breech presentation (converted from transverse presentation) atraumatically. The nose and mouth were suctioned and the cord doubly clamped and cut. And the infant was handed off to waiting pediatricians. The placenta was then delivered spontaneously and the uterus exteriorized and cleared of all clots and debris. The uterine incision was then repaired with 1- 0 Vicryl in a running locked fashion. A second layer of the same suture was used to obtain hemostasis via horizontal imbrication of the initial layer. Due to need for continued hemostasis a vertical imbrication layer was then placed causing the uterine closure to be a 3 layer closure. Additional hemostasis was achieved with O'Prosper suture on the left with 2-0 Vicryl. The bladder flap was then repaired with 3-0 chromic in a running fashion. FloSeal was placed beneath the bladder flap closure for additional hemostasis. The uterus was returned to the patient's abdomen and Interceed was placed overlying the uterine incision to prevent adhesions. The gutters were cleared of all clots and debris. All operative sites were noted to be hemostatic. The fascia was reapproximated with 0 Vicryl in a running fashion from each lateral edge to the midline. The skin was closed with 3-0 Monocryl in a running subcuticular fashion with overlying Dermabond for additional dressing as well as wound closure. The patient tolerated the procedure well. Sponge lap needle and instrument counts are correct times 2. 2 g of Ancef were given prior to skin incision. The patient was then converted from a leftward tilt position and in place and in the dorsal supine position with high lithotomy. A sterile speculum was then placed in the patient's vagina and the ring forceps were used to grasp the only visible cervical cerclage suture which was easily removed. Bimanual exam was performed to find the second cerclage suture which was unable to be located and suspected that it was actually removed in the office previously. However on bimanual exam possible cervical septum versus tear within the left of the cervix was noted however this perforation tear or septum was actually hemostatic. At this time this procedure was completed and the patient was taken to the recovery area awake and in stable condition.
--- NOTE | 2016-11-15 16:19 | Delivery Summary ---
Del Sum A-C Datetime Report Generated by CPN: 11/15/2016 16:19 ADMISSION DATA Chief Complaint: Uterine Contractions; Suspected Ruptured Membranes Indication for Induction: Not Applicable Admission Impression: , Intrauterine ; Ruptured Membranes; Repeat Section Admit Provider Comments: 26yo at 36+4ega with c/b H/o prior c/s x 2, h/o PTD at 18 and 26wks (incomp cvx 18wks, cerclage at G3 but PPROM at 26wks, h/o 37 Primary C/S for Failure to Progress, 8wk SAB). GBS negative. Cerclage placed this at 15wks - two stitches. She reports leakage of fluid this am at 0930 - clear fluid. She was scheduled for RELTCS on 12/04 but due to PPROM will proceed with RELTCS with scar revision and Cerclage removal. DELIVERY PERSONNEL Delivery Doctor:: Zahra Armtsrong MD Anesthesiologist:: Ricky Yanez MD WHEEL ALIGNMENT TECHNICIAN:: Wai Hammer Labor and Delivery Nurse:: Doreen Devi RNfront desk clerk Nurse:: Sofie Cotton RN Neonatal Nurse Practitioner:: АНДРЕЙ [place] Nursery Nurse:: Trisha Garcia RN Mis Manager/JAPANESE TUTOR: ST Dereck Mis Manager/JAPANESE TUTOR: ST Matthew MATERNAL INFORMATION Delivery Anesthesia: Spinal Medications After Delivery: Pitocin Bolus-Please Comment; Pitocin Drip 20 Units/1000ml NSS Estimated Blood Loss (ml): 700 Maternal Complications: Premature Rupture of Membranes LABOR SUMMARY EDC: 12/09/2016 00:00 No. Babies in Womb: 1 Attempted: No Labor Anesthesia: None LABOR INFORMATION Reason for Induction: Not Applicable Oxytocin: N/A Group B Beta Strep: negative Antibiotics # of Doses: 1 Antibiotics Time of Last Dose: 1130 Name of Antibiotic Given: Ancef Steroids Given: None Reason Steroids Not Administered: Not Applicable MEMBRANES Membranes Rupture Method: Spontaneous Rupture of Membranes: 11/15/2016 09:30 Length of Rupture (hr): 3.05 Amniotic Fluid Color: Clear Amniotic Fluid Amount: Moderate Amniotic Fluid Odor: Normal STAGES OF LABOR Stage 3 hr: 0 Stage 3 min: 1 VAGINAL DELIVERY Episiotomy: None Laceration Extension: N/A Laceration Type: None Laceration Repair: Not Applicable CSECTION DELIVERY Primary Indication: Repeat Elective Secondary Indication: Transverse/Complex Presentation CSection Urgency: Non-Scheduled CSection Incidence: Repeat Labor: No Labor Elective: Nonelective CSection Incision: Lower Uterine Transverse BABY A INFORMATION Delivery Date/Time: 11/15/2016 12:33 Method of Delivery: Born in Route : No : N/A Forceps: N/A Vacuum Extraction: N/A Shoulder Dystocia : No PRESENTATION/POSITION BABY A Presentation: Transverse PLACENTA INFORMATION BABY A Placenta Delivery Time : 11/15/2016 12:34 Placenta Method of Delivery: Manual Removal Placenta Status: Delivered SCORES BABY A Heart Rate 1 min: >100 bpm Resp Effort 1 min: Good Cry Reflex Irritability 1 min: Cough or Sneeze or Pulls Away Muscle Tone 1 min: Some Flexion of Extremities Color 1 min: Body [place], Extremities Blue SCORE 1 MIN: 8 Heart Rate 5 min: >100 bpm Resp Effort 5 min: Good Cry Reflex Irritability 5 min: Cough or Sneeze or Pulls Away Muscle Tone 5 min: Active Motion Color 5 min: Body [place], Extremities Blue SCORE 5 MIN: 9 INFANT INFORMATION BABY A Gestational Age at Delivery: 36.4 Gestational Status: Late - 34- 36.6 Weeks Outcome : Liveborn Infant Condition : Stable Sex: Female WEIGHT/LENGTH BABY A Birthweight (gm): 3010 Infant Weight (lb): 6 Infant Weight (oz): 10 Length (in): 19.50 Length (cm): 49.53 CORD INFORMATION BABY A No. Cord Vessels: 3 Nuchal Cord : N/A Cord Blood Taken: Yes-For Eval (Mom's Blood Type - or O+) Suction: Mouth; Nose ASSESSMENT BABY A Complications: None Physical Findings at Delivery: Within Normal Limits Infant Respirations: Appears Normal Skin to Skin: No Technologist Infectious Disease/ALS Called : No Care By: Miguel Brock Matters COLOR DIPPER Transferred To: Nursery BABY B INFORMATION : N/A
--- NOTE | 2016-11-15 16:35 | Admission Physical ---
Datetime Report Generated by CPN: 11/15/2016 16:35 CURRENT ADMISSION Chief Complaint: Uterine Contractions; Suspected Ruptured Membranes Indication for Induction: Not Applicable Admit Plan: Admit to Unit; Initiate Section Protocol ALLERGIES Medication Allergies: No Medication Allergies: No Known Allergies (11/15/2016) Medication Allergies: No Known Allergies (10/30/2016) Medication Allergies: No Known Allergies (09/01/2016) Medication Allergies: No Known Allergies (03/19/2015) Latex: No Latex Allergies Food Allergies: None Environmental Allergies: None OBSTETRICAL HISTORY EDC: 12/09/2016 00:00 : 5 Para: 2 Para: 2 Term: 1 : 1 SAB: 2 IAB: 0 Ectopic: 0 Livin Cesareans: 2 VBACs: 0 Multiple Births: 0 Gestational Diabetes: No Rh Sensitization: No Incompetent Cervix: Yes ERIN: No Infertility: No ART Treatment: No Uterine Anomaly: No IUGR: No Hx Previous C/S: Yes Macrosomia: No Hx Loss/Stillborn: No PIH: No Hx : No Placenta Previa/Abruption: No Depression/PP Depression: No PTL/PROM: Yes Post Hemorrhage: No Current Procedures: Ultrasound; Cerclage Obstetrical History Comments: G1: 08/2010- primary c/s in [place] for FTP; male @ 37 weeks, 7#5oz G2: 2011- SAB _8 weeks G3: 05/2013- 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, vaginal delivery of male at [facility]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 G4: 01/2014 - repeat c/s at [facility]; female @ 26 weeks- PROM w/cerclage G5: current (cerclage placed 06/20/16; weekly p17 injections) SEE RECORDS Alcohol: No Marijuana : No Cocaine: No Other Illicit Drugs: No Cigarettes: Never Smoker. 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 Surgery: No Heart Disease: No Hosp/Surgery: Yes Autoimmune Disorder: No Anesthetic Complications: No Kidney Disease: No Abnormal Pap Smear: No Neuro/Epilepsy: No Psychiatric Disorders: No Other Medical Diseases: No Hepatitis/Liver Disease: No Significant Family History: No Varicosities/Phlebitis: No Trauma/Violence : No Thyroid Dysfunction: No Medical History Comments: asthma (no inhaler needed currently); prior c/s x2 INFECTIOUS HISTORY Gonorrhea: Yes Genital Herpes: No Chlamydia: Yes Tuberculosis: No Syphilis: No Hepatitis: No HIV/AIDS Exposure: No Rash or Viral Illness: No HPV: No Infectious History Comments: gonorrhea in 2010 (treated); chlamydia in 2010 (treated) PHYSICAL EXAM General: Normal HEENT: Normal Neurologic: Normal Thyroid: Normal Heart: Normal Lungs: Normal Breast: Deferred Back: Normal Abdomen: Normal Genitourinary Exam: Normal Extremities: Normal DTRs: Normal Pelvic Type: Adequate Vital Signs: Reviewed; Within Normal Limits VAGINAL EXAM Dilatation: 1 Effacement: 70 Station: -2 Contraction Comments: q 2-3 MEMBRANES Pooling: Positive Ferning Results: Positive Membranes: Ruptured Amniotic Fluid Color: Clear FETUS A EGA: 36.4 Monitoring: External US Variability: Moderate 6-25bpm Accelerations: 15X15 Decelerations: None FHR Category: Category I Presentation: Vertex Admit Comment: 26yo at 36+4ega with c/b H/o prior c/s x 2, h/o PTD at 18 and 26wks (incomp cvx 18wks, cerclage at G3 but PPROM at 26wks, h/o 37 Primary C/S for Failure to Progress, 8wk SAB). GBS negative. Cerclage placed this at 15wks - two stitches. She reports leakage of fluid this am at 0930 - clear fluid. She was scheduled for RELTCS on 12/04 but due to PPROM will proceed with RELTCS with scar revision and Cerclage removal. PLANS FOR LABOR AND DELIVERY Labor and Delivery: None Pain Management: Spinal Feeding Preference: Breast Benefit of Breast Feed Discussed: Yes Circumcision: N/A INFORMED CONSENT Informed Consent Obtained: Section Delivery; Risks, Benefits and Alternatives Discussed Signature: with User ID: [email or web address]
[2016-11-15] MEDS: DOCUSATE SODIUM 100 MG CAPSULE PO SCH (18:04)
--- NOTE | 2016-11-15 19:00 | L&D Flow Sheet ---
LD Flowsheet Datetime Report Generated by CPN: 11/15/2016 19:00 Datetime: 11/15/2016 16:29 Pulse: 56 (QS system process) SpO2 (%): 99 (QS system process) Datetime: 11/15/2016 16:28 NBP Sys/Vero/Mean (mmHg): 113 (QS system process) : 60 (QS system process) : 81 (QS system process) Pulse: 55 (QS system process) Datetime: 11/15/2016 16:24 Pulse: 58 (QS system process) Respirations: 14 (Doreen Marito, RN) SpO2 (%): 100 (QS system process) Temperature (F): 97.2 (Doreen Devi, RN) Temperature (C): 36.2 (QS system process) Datetime: 11/15/2016 16:19 Pulse: 57 (QS system process) SpO2 (%): 100 (QS system process) Datetime: 11/15/2016 16:15 Vital Signs Stage of : Recovery (Doreen Devi, RN) Pain Pain Scale: 3 (Doreen Marito, RN) Pain Presence: Constant (Doreen Devi, RN) Pain Type: Burning; Cramping; Pressure; Ache (Doreen Devi, RN) Pain Location: Abdomen (Doreen Devi, RN) Datetime: 11/15/2016 16:14 Pulse: 54 (QS system process) SpO2 (%): 100 (QS system process) Datetime: 11/15/2016 16:13 NBP Sys/Vero/Mean (mmHg): 115 (QS system process) : 72 (QS system process) : 89 (QS system process) Pulse: 52 (QS system process) Datetime: 11/15/2016 16:09 Pulse: 53 (QS system process) SpO2 (%): 100 (QS system process) Datetime: 11/15/2016 16:04 Pulse: 58 (QS system process) SpO2 (%): 99 (QS system process) Datetime: 11/15/2016 16:00 Vital Signs Stage of : Recovery (Doreen Devi, RN) Pain Pain Scale: 3 (Doreen Devi, RN) Pain Presence: Constant (Doreen Devi, RN) Pain Type: Burning; Cramping; Pressure; Ache (Doreen Devi, RN) Pain Location: Abdomen (Doreen Devi, RN) Datetime: 11/15/2016 15:59 Pulse: 49 (QS system process) SpO2 (%): 98 (QS system process) Datetime: 11/15/2016 15:58 NBP Sys/Vero/Mean (mmHg): 114 (QS system process) : 65 (QS system process) : 86 (QS system process) Pulse: 51 (QS system process) Datetime: 11/15/2016 15:54 Pulse: 61 (QS system process) SpO2 (%): 100 (QS system process) Datetime: 11/15/2016 15:49 Pulse: 53 (QS system process) SpO2 (%): 100 (QS system process) Datetime: 11/15/2016 15:45 Vital Signs Stage of : Recovery (Doreen Devi, RN) Pain Pain Scale: 3 (Doreen Devi, RN) Pain Presence: Constant (Doreen Devi, RN) Pain Type: Burning; Cramping; Pressure; Ache (Doreen Devi, RN) Pain Location: Abdomen (Doreen Devi, RN) Datetime: 11/15/2016 15:44 Pulse: 57 (QS system process) SpO2 (%): 100 (QS system process) Datetime: 11/15/2016 15:43 NBP Sys/Vero/Mean (mmHg): 121 (QS system process) : 63 (QS system process) : 87 (QS system process) Pulse: 55 (QS system process) Datetime: 11/15/2016 15:39 Pulse: 54 (QS system process) SpO2 (%): 100 (QS system process) Datetime: 11/15/2016 15:34 Pulse: 70 (QS system process) SpO2 (%): 100 (QS system process) Datetime: 11/15/2016 15:30 Pain Pain Scale: 5 (Doreen Purvis RN) Pain Presence: Constant (Doreen Purvis RN) Pain Type: Dull (Doreen Purvis RN) Pain Location: Abdomen (Doreen Purvis RN) Pain Goal: 2 (Doreen Purvis RN) Pain Relief Measures: Pain Medication Given; Comfort Measures (Doreen Purvis RN) Datetime: 11/15/2016 15:29 Pulse: 61 (QS system process) SpO2 (%): 100 (QS system process) Datetime: 11/15/2016 15:28 NBP Sys/Vero/Mean (mmHg): 122 (QS system process) : 67 (QS system process) : 89 (QS system process) Pulse: 52 (QS system process) Datetime: 11/15/2016 15:24 Pulse: 59 (QS system process) SpO2 (%): 100 (QS system process) Datetime: 11/15/2016 15:19 Pulse: 58 (QS system process) SpO2 (%): 100 (QS system process) Datetime: 11/15/2016 15:15 Vital Signs Stage of : Recovery (Doreen Devi, RN) Pain Pain Scale: 5 (Doreen Devi, RN) Pain Presence: Constant (Doreen Devi, RN) Pain Type: Burning; Cramping; Pressure; Ache (Doreen Devi, RN) Pain Location: Abdomen (Doreen Devi, RN) Datetime: 11/15/2016 15:14 Pulse: 68 (QS system process) SpO2 (%): 100 (QS system process) Datetime: 11/15/2016 15:13 NBP Sys/Vero/Mean (mmHg): 128 (QS system process) : 56 (QS system process) : 81 (QS system process) Pulse: 62 (QS system process) Datetime: 11/15/2016 15:09 Pulse: 67 (QS system process) SpO2 (%): 100 (QS system process) Datetime: 11/15/2016 15:04 Pulse: 61 (QS system process) SpO2 (%): 100 (QS system process) Datetime: 11/15/2016 15:03 Pain Pain Scale: 5 (Doreen Devi, RN) Pain Presence: Constant (Doreen Devi, RN) Pain Type: Burning; Cramping; Pressure; Ache (Doreen Devi, RN) Pain Location: Abdomen (Doreen Devi, RN) Datetime: 11/15/2016 15:00 Vital Signs Stage of : Recovery (Doreen Devi, RN) Pain Pain Scale: 5 (Doreen Devi, RN) Pain Presence: Constant (Doreen Devi, RN) Pain Type: Burning; Cramping; Pressure; Ache (Doreen Devi, RN) Pain Location: Abdomen (Doreenjolanta Devi, RN) Datetime: 11/15/2016 14:59 Pulse: 75 (QS system process) SpO2 (%): 100 (QS system process) Datetime: 11/15/2016 14:58 NBP Sys/Vero/Mean (mmHg): 115 (QS system process) : 78 (QS system process) : 92 (QS system process) Pulse: 65 (QS system process) Datetime: 11/15/2016 14:54 Pulse: 70 (QS system process) SpO2 (%): 100 (QS system process) Datetime: 11/15/2016 14:49 Pulse: 72 (QS system process) SpO2 (%): 100 (QS system process) Datetime: 11/15/2016 14:45 Vital Signs Stage of : Recovery (Doreen Devi, RN) Pain Pain Scale: 5 (Doreen Devi, RN) Pain Presence: Constant (Doreen eDvi, RN) Pain Type: Burning; Cramping; Pressure; Ache (Doreenjolanta Devi, RN) Pain Location: Abdomen; Perineum (Dorene Devi, RN) Datetime: 11/15/2016 14:44 Pulse: 81 (QS system process) SpO2 (%): 100 (QS system process) Datetime: 11/15/2016 14:42 NBP Sys/Vero/Mean (mmHg): 115 (QS system process) : 79 (QS system process) : 92 (QS system process) Pulse: 82 (QS system process) Datetime: 11/15/2016 14:39 Pulse: 70 (QS system process) SpO2 (%): 100 (QS system process) Datetime: 11/15/2016 14:38 Vital Signs Stage of : Recovery (Doreen Devi, RN) Pain Pain Scale: 5 (Doreen Marito, RN) Pain Presence: Constant (Doreen Devi, RN) Pain Type: Burning; Cramping; Pressure; Ache (Doreen Devi, RN) Pain Location: Abdomen (Doreen Devi, RN) Datetime: 11/15/2016 14:37 NBP Sys/Vero/Mean (mmHg): 114 (QS system process) : 76 (QS system process) : 91 (QS system process) Pulse: 73 (QS system process) Datetime: 11/15/2016 14:34 Pulse: 82 (QS system process) SpO2 (%): 100 (QS system process) Datetime: 11/15/2016 14:32 NBP Sys/Vero/Mean (mmHg): 118 (QS system process) : 77 (QS system process) : 93 (QS system process) Pulse: 81 (QS system process) Datetime: 11/15/2016 14:30 Vital Signs Stage of : Recovery (Doreen Devi, RN) Pain Pain Scale: 5 (Doreen Marito, RN) Pain Presence: Constant (Doreenjolanta Devi, RN) Pain Type: Burning; Cramping; Pressure; Ache (Doreen Devi, RN) Pain Location: Abdomen; Perineum (Doreen Devi, RN) Datetime: 11/15/2016 14:29 Pulse: 83 (QS system process) SpO2 (%): 100 (QS system process) Datetime: 11/15/2016 14:26 NBP Sys/Vero/Mean (mmHg): 114 (QS system process) : 78 (QS system process) : 91 (QS system process) Pulse: 85 (QS system process) Datetime: 11/15/2016 14:24 Vital Signs Stage of : Recovery (Doreen Devi, RN) Datetime: 11/15/2016 11:39 Uterine Activity Monitor Mode: External (Doreen Marito, RN) Frequency (min): 4-6 (Doreen Marito, RN) Quality: Mild/Moderate (Doreen Devi, RN) Duration (sec): 60-100 (Doreen Marito, RN) Resting Tone (Palpate): Relaxed (Doreen Marito, RN) Assessment A Monitor Mode: External US (Doreen Marito, RN) FHR Baseline Rate : 135 (Doreen Marito, RN) Variability: Moderate 6-25 bpm (Doreen Marito, RN) Accelerations: 15X15 (Doreen Devi, RN) Decelerations: None (Doreen Devi, RN) Communication Comments: Monitors removed for pt to ambulate to OR (Doreen Devi, RN) Datetime: 11/15/2016 11:30 Medications Antibiotics: Ancef IV (Gm) @ 2 (Doreen Devi, RN) Antiemetics/Antacids: Bicitra 15 ml PO (Doreen Devi, RN) Datetime: 11/15/2016 11:15 Uterine Activity Monitor Mode: External; Palpation (Doreen Devi, RN) Frequency (min): 4-6 (Doreen Devi, RN) Quality: Mild/Moderate (Doreen Devi, RN) Duration (sec): 60-100 (Doreen Devi, RN) Resting Tone (Palpate): Relaxed (Doreen Devi, RN) Assessment A Monitor Mode: External US (Doreen Devi, RN) FHR Baseline Rate : 135 (Doreen Devi, RN) Variability: Moderate 6-25 bpm (Doreen Devi, RN) Accelerations: 15X15 (Doreen Devi, RN) Decelerations: None (Doreen Devi, RN) Datetime: 11/15/2016 11:14 I/O Interventions: Iraheta Cath Inserted (Doreen Devi, RN) Datetime: 11/15/2016 11:08 NBP Sys/Vero/Mean (mmHg): 132 (QS system process) : 79 (QS system process) : 101 (QS system process) Pulse: 94 (QS system process) LaborFlag: Antepartum (QS system process) Datetime: 11/15/2016 10:45 Uterine Activity Monitor Mode: External; Palpation (Doreen Devi RN) Frequency (min): 3-5 (Doreen Devi RN) Quality: Mild/Moderate (Doreen Devi RN) Duration (sec): 60-100 (Doreen Devi RN) Resting Tone (Palpate): Relaxed (Doreen Devi RN) Assessment A Monitor Mode: External US (Doreen Marito, RN) FHR Baseline Rate : 135 (Doreen Marito, RN) Variability: Moderate 6-25 bpm (Doreen Marito, RN) Accelerations: 15X15 (Doreen Marito, RN) Decelerations: None (Doreen Marito, RN) Datetime: 11/15/2016 10:43 Communication Comments: Dr Armstrong on unit, update given on patient status. Plan for repeat C/S (Doreen Devi, RN) Datetime: 11/15/2016 10:27 Monitor Interventions for FHR: Ultrasound Adjusted (Doreen Devi RN) Communication Communication: RN at Bedside (Doreen Devi RN) Datetime: 11/15/2016 10:15 Uterine Activity Monitor Mode: External (Doreen Devi RN) Frequency (min): 3-5 (Doreen Devi RN) Quality: Mild/Moderate (Doreen Devi RN) Duration (sec): 60-120 (Doreen Devi RN) Duration Criteria: Less than Two 120 Second Contractions (Doreen Devi RN) Pattern: Normal: <= 5 Contractions in 10 Minutes (Doreen Devi, RN) Resting Tone (Palpate): Relaxed (Doreen Devi, RN) Assessment A Monitor Mode: External US (Doreen Devi, RN) FHR Baseline Rate : 135 (Doreen Devi, RN) Variability: Moderate 6-25 bpm (Doreen Devi, RN) Accelerations: 15X15 (Doreen Devi, RN) Decelerations: None (Doreen Devi, RN) Datetime: 11/15/2016 10:14 Pool: Positive (Doreen Devi, RN) Datetime: 11/15/2016 10:05 Pain Pain Scale: 0 (Doreen Devi RN) Pain Presence: None/Denies (Doreen Devi RN) Pain Type: N/A (Doreen Devi RN) Vaginal Exam Membrane Status: Ruptured (Doreen Devi RN) Membranes Ruptured Date/Time: 11/15/2016 09:30 (Doreen Devi RN) Membranes Rupture Method: Spontaneous (Doreen Devi RN) Amniotic Fluid Color: Clear (Doreen Devi RN) Amniotic Fluid Amount: Moderate (Doreen Devi RN) Amniotic Fluid Odor: Normal (Doreen Devi RN) Vaginal Bleeding: None (Doreen Devi RN) Maternal Assessment Level of Consciousness: Fully Conscious (Doreen Devi RN) DTR's/Clonus: DTRs 2+; No Clonus (Doreen Devi, RN) Headache: Denies (Doreen Devi, RN) Breath Sounds, Left: Clear and Equal (Doreen Devi, RN) Breath Sounds, Right: Clear and Equal (Doreen Devi, RN) Nausea/Vomiting: Denies (Doreen Devi, RN) RUQ Epigastric Pain: Denies (Doreen Devi, RN) Teaching Instructional Method: Verbal; Patient Instructed; Family/Support Person Instructed; Verbalized Understanding (Doreen Devi RN) Plan of Care: Plan of Care Discussed (Doreen Devi RN) Unit Routine: [place] to Room; Call Alejandre; Bed; Handwashing; Monitoring; Bathroom Privileges (Doreen Devi RN) LaborFlag: Antepartum (QS system process) Datetime: 11/15/2016 10:00 NBP Sys/Vero/Mean (mmHg): 131 (QS system process) : 83 (QS system process) : 103 (QS system process) Pulse: 88 (QS system process) LaborFlag: Antepartum (QS system process) Datetime: 11/15/2016 09:58 Monitor Interventions for UA: [place] Adjusted (Doreen Devi, RN) Patient Care Patient Position/Activity: Right Lateral (Doreen Devi, RN) Datetime: 11/15/2016 09:55 Patient Care Patient Position/Activity: Left Lateral (Doreen Devi, )
[2016-11-15] MEDS ORDERED: ONDANSETRON 4 MG TAB.RAPDIS PO PRN (21:20)
[2016-11-15] MEDS ORDERED: RINGERS SOLUTION,LACTATED 500 ML IV PRN (21:21)
[2016-11-15] MEDS: RINGERS SOLUTION,LACTATED 1,000 ML IV PRN (21:29)
[2016-11-15] MEDS ORDERED: ONDANSETRON HCL INJ/PF 4 MG/2 ML SDV IV ONE (22:00)
[2016-11-15] MEDS: KETOROLAC TROMETHAMINE INJ/PF 30 MG/1 ML SDV IV SCH (22:08)
[2016-11-16] MEDS: RINGERS SOLUTION,LACTATED 1,000 ML IV PRN (01:23)
[2016-11-16] MEDS: OXYCODONE-ACETAMINOPHEN 5-325 MG TABLET PO PRN ×3 (01:53→23:07)
--- NOTE | 2016-11-16 06:01 | L&D Current Admission ---
Current Admit Datetime Report Generated by CPN: 11/16/2016 06:00 ADMISSION INFORMATION Current Admit Date/Time: 11/15/2016 10:34 (11/15/2016 10:05:Doreen Devi RN) Reason for Admission: Rupture of Membranes (11/15/2016 10:05:Doreen Devi RN) Chief Complaint: Suspected Rupture of Membranes (11/15/2016 10:05:Doreen Devi RN) Medications During : Vitamin (11/15/2016 10:05:Doreen Devi RN) EGA per Dates: 36.4 (11/15/2016 10:05:QS system process) Method of Arrival: Wheelchair (11/15/2016 10:05:Doreen Devi RN) Admitted From: Home (11/15/2016 10:05:Doreen Devi RN) Reason for Induction: Not Applicable (11/15/2016 10:05:Doreen Devi RN) Records Available: Yes (11/15/2016 10:05:Doreen Devi RN) General Admission Information: Reviewed (11/15/2016 10:05:Doreen Devi RN) BELONGINGS/ADVANCED DIRECTIVES Other Belongings: see consents (11/15/2016 10:05:Doreen Devi RN) Disposition of Belongings: Kept with Patient (11/15/2016 10:05:Doreen Devi RN) Advance Direct for Healthcare: No, and Wants No Information (11/15/2016 10:05:Doreen Devi RN) Durable Power of Talent Acquisition Assistant: No (11/15/2016 10:05:Doreen Devi RN) Living Will: No (11/15/2016 10:05:Doreen Devi RN) Organ Donor: No (11/15/2016 10:05:Doreen Devi RN) Pt Rights Information Given: Yes (11/15/2016 10:05:Doreen Devi RN) Pt Understands Pt Rights: Yes (11/15/2016 10:05:Doreen Devi RN) LEARNING ASSESSMENT Knowledge Level: Understands L_D Process; Understands Care Activities; Had Pre-Hospital Education; Understands Diagnosis (11/15/2016 10:05:Doreen Devi RN) Barriers to Learning: None (11/15/2016 10:05:Doreen Devi RN) Learning Readiness: Motivated (11/15/2016 10:05:Doreen Devi RN) Learns Best By: 1 to 1 Instruction (11/15/2016 10:05:Doreen Devi RN) Learning Needs: Labor and Delivery Process (11/15/2016 10:05:Doreen Devi RN) DOMESTIC VIOLANCE SCREENING Dom Viol Threatened/Hurt: No (11/15/2016 10:05:Doreen Devi RN) Hx of Abuse/Neglect past 2yrs: No (11/15/2016 10:05:Doreen Devi RN) Feel Unsafe Going Home: No (11/15/2016 10:05:Doreen Devi RN) Addt'l Observ Indicating Abuse: No (11/15/2016 10:05:Doreen Devi RN) Reason Unable to Complete Screen: N/A, Screen Completed (11/15/2016 10:05:Doreen Devi RN) Considered Personal Harm/Suicide: No (11/15/2016 10:05:Doreen Devi RN) NUTRITIONAL/FUNCTIONAL SCREENING Problem with Appetite >5 Days: No (11/15/2016 10:05:Doreen Devi RN) Chew/Swallow Difficulties: No (11/15/2016 10:05:Doreen Devi RN) Inappropriate Wt Gain/Loss: No (11/15/2016 10:05:Doreen Devi RN) Presence Skin Breakdown/Ulcer: No (11/15/2016 10:05:Doreen Devi RN) Special Diet: No (11/15/2016 10:05:Doreen Devi RN) Pt Requests Operations Management Trainee Visit: No (11/15/2016 10:05:Doreen Devi RN) Hx of Any of the Following?: N/A (11/15/2016 10:05:Doreen Devi RN) New Diagnosis of: N/A (11/15/2016 10:05:Doreen Devi RN) Requires Assist w/Ambulation: No (11/15/2016 10:05:Doreen Devi RN) Uses Assist Device to Ambulate: No (11/15/2016 10:05:Doreen Devi RN) Pt Requires Help w/ADL's: No (11/15/2016 10:05:Doreen Devi RN)
--- NOTE | 2016-11-16 06:01 | L&D General Admission ---
General Admit Datetime Report Generated by CPN: 11/16/2016 06:00 INFORMATION Patient Age: 25 (05/30/2016 08:18:QS system process) EDC: 12/09/2016 00:00 (09/01/2016 23:34:Odette Sofia RN) : 5 (09/01/2016 23:34:Selwyn Stinson RN) Para: 2 (09/02/2016 02:44:Shelia Ridley RN) Term: 1 (09/01/2016 23:34:Shelia Ridley RN) : 1 (09/01/2016 23:34:Shelia Ridley RN) Spontaneous Abortions: 2 (09/01/2016 23:34:Shelia Ridley RN) Induced Abortions: 0 (09/01/2016 23:34:Shelia Ridley RN) Livin (09/01/2016 23:34:Shelia Ridley RN) Cesareans: 2 (09/01/2016 23:34:Shelia Ridley RN) VBACs: 0 (09/01/2016 23:34:Shelia Ridley RN) Ectopic: 0 (09/01/2016 23:34:Shelia Ridley RN) Multiple Births: 0 (09/01/2016 23:34:Shelia Ridley RN) Baby, Number in Womb: 1 (09/02/2016 02:44:Shelia Ridley RN) CARE Primary Assistant Account Executive: [facility] (09/01/2016 23:34:Shelia Ridley RN) Month of 1st Visit: March (09/01/2016 23:34:Shelia Ridley RN) Adequate Care: Yes (09/01/2016 23:34:Shelia Ridley RN) Prepregnancy Weight (lb): 1 (09/01/2016 23:34:ROCKY Nguyen) Prepregnancy Weight (kg): 0.5 (09/01/2016 23:34:QS system process) Height (in): 60 (09/01/2016 23:45:QS system process) ALLERGIES Medication Allergy: No (09/01/2016 23:34:Shelia Ridley RN) Medication Allergies: No Known Allergies (11/15/2016) (11/15/2016 10:10:QS system process) Latex Allergy: No Latex Allergies (09/01/2016 23:34:Shelia Ring RN) Food Allergies: None (09/01/2016 23:34:Shelia Ring, RN) Environmental Allergies: None (09/01/2016 23:34:Shelia Ring, RN) COMMUNICATION Primary Language: Chadian (09/01/2016 23:34:Shelia Ring RN) Medical Tx Preferred Language: Chadian (09/01/2016 23:34:Shelia Ring, RN) Communication Barrier(s): None (09/01/2016 23:34:Shelia Ring, RN) DEMOGRAPHICS Address: [address] [place] [id number] (06/20/2016 07:11:QS system process) Zipcode: [address] (05/30/2016 08:18:QS system process) Home (05/30/2016 08:18:QS system process) SSN: [id number] (05/30/2016 08:18:QS system process) Next of Kin Name: IAN ROQUE (05/30/2016 08:18:QS system process) Next of Kin (06/20/2016 07:11:QS system process) Next of Kin Relationship: MO (05/30/2016 08:18:QS system process) Date of : 1990 (05/30/2016 08:18:QS system process) Marital Status: Single (05/30/2016 08:18:QS system process) Sex: Female (05/30/2016 08:18:QS system process) Race: (05/30/2016 08:18:QS system process) Ethnicity: Non- or (05/30/2016 08:18:QS system process) Hinduism: None (05/30/2016 08:18:QS system process) DRUG AND ALCOHOL USE Alcohol: No (09/01/2016 23:34:Shelia Ring, RN) Cigarettes: Never Smoker. [id number] (09/01/2016 23:34:Shelia Ridley RN) Marijuana: No (09/01/2016 23:34:Shelia Ring, RN) Cocaine: No (09/01/2016 23:34:Shelia Ring, RN) Other Illicit Drugs: No (09/01/2016 23:34:Shelia Ring, RN) VACCINE HISTORY Influenza Vaccine: No (09/01/2016 23:34:Shelia Ridley RN) Pneumococcal Vaccine: No (09/01/2016 23:34:Shelia Ridley RN) Tetanus Vaccine: Yes (09/01/2016 23:34:Odette Sofia RN) Tdap Vaccine: Yes (09/01/2016 23:34:Shelia Ridley RN) Hepatitis B Vaccine: Yes (09/01/2016 23:34:Shelia Ridley RN) Pet Care Worker: [facility] (09/01/2016 23:34:Shelia Ridley RN) Feeding Preference: Breast (09/01/2016 23:34:Shelia Ridley RN) Benefit of Breast Feed Discussed: Yes (09/01/2016 23:34:Shelia Ridley RN) Circumcision: N/A (09/01/2016 23:34:Shelia Ridley RN) Classes Attended: No (09/01/2016 23:34:Shelia Ridley RN) Tubal Ligation: No (09/01/2016 23:34:Shelia Ridley RN) Tubal Authorization Signed: N/A (09/01/2016 23:34:Shelia Ridley RN) Consent: N/A (09/01/2016 23:34:Shelia Ridley RN) Consent Signed: N/A (09/01/2016 23:34:Shelia Ridley RN) Pain Management Plans: Spinal (09/01/2016 23:34:Shelia Ridley RN) Plans for Labor and Delivery: None (09/01/2016 23:34:ROCKY Nguyen) Other Labor and Delivery Plans: REPEAT C/S (09/01/2016 23:34:Odette Sofia RN) Support Person: Jason Cummings (09/01/2016 23:34:ROCKY Nguyen) Cultural/Spritual Practice: No (09/01/2016 23:34:Shelia Ridley RN) Spir/Cult Dietary Needs: No (09/01/2016 23:34:Shelia Ridley RN) LIVING SITUATION/DISCHARGE PLAN Living Arrangements: Apartment (09/01/2016 23:34:Shelia Ridley RN) Adequate Access to:: Electric; Heat; Refrigeration; Plumbing/Running water; Phone; Transportation (09/01/2016 23:34:Shelia Ridley RN) WIC Program: Yes (09/01/2016 23:34:Shelia Ridley RN) Discharge Telehealth Nurse Educator Person: Jason Cummings (09/01/2016 23:34:Shelia Ridley RN) Person to Help after Discharge: Jason Cummings (09/01/2016 23:34:Shelia Ridley RN) Currently Using Commun Resources: Yes (09/01/2016 23:34:Shelia Ridley RN) Specify Current Resource Used: Medicaid, food stamps (09/01/2016 23:34:Shelia Ridley RN) Outside Agency/Imagery Intelligence: Yes (09/01/2016 23:34:ROCKY Nguyen) Specify Agency/ Imagery Intelligence: unsure of name (09/01/2016 23:34:ROCKY Nguyen) Need Help to Obtain Car Seat: states will have prior to delivery (09/01/2016 23:34:ROCKY Nguyen) Adoption Requested: No (09/01/2016 23:34:Shelia Ridley RN) Pt Contact w/infant Post : N/A (09/01/2016 23:34:Shelia Ridley RN) LABS Blood Type: O Positive (09/01/2016 23:34:Ro Martinez) Antibody Screen: Negative (09/01/2016 23:34:Shelia Ridley RN) Hemoglobin: 11.2 L (11/15/2016 10:40:QS system process) Hematocrit: 32.8 L (11/15/2016 10:40:QS system process) MCV: 84 (11/15/2016 10:40:QS system process) Group Beta Strep: negative (09/01/2016 23:34:Doreen Devi RN) Gonorrhea: Negative (09/01/2016 23:34:Doreen Devi RN) Chlamydia: Negative (09/01/2016 23:34:Doreen Devi RN) RPR/VDRL: Nonreactive (09/01/2016 23:34:Ro Martinez) HIV Exposure Test: Negative (09/01/2016 23:34:Ro Martinez) Hepatitis B: Negative (09/01/2016 23:34:Shelia Ridley RN) Rubella: Immune (09/01/2016 23:34:Ro Martinez) OB/PREVIOUS HISTORY Previous Procedures: Ultrasound; NST; Cerclage (09/01/2016 23:34:Shelia Ridley RN) Current Procedures: Ultrasound; Cerclage (09/01/2016 23:34:Shelia Ridley RN) History of Previous : Yes (09/01/2016 23:34:Shelia Ridley RN) History of Gestational Diabetes: No (09/01/2016 23:34:Shelia Ridley RN) History of PIH: No (09/01/2016 23:34:Shelia Ridley RN) History of Incompetent Cervix: Yes (09/01/2016 23:34:Shelia Ridley RN) History of Placenta Previa/Abrup: No (09/01/2016 23:34:Shelia Ridley RN) History of Macrosomia: No (09/01/2016 23:34:Shelia Ridley RN) History of IUGR: No (09/01/2016 23:34:Shelia Ridley RN) History of Hemorrhage: No (09/01/2016 23:34:Shelia Ridley RN) History of Loss/Stillborn: No (09/01/2016 23:34:Shelia Ridley RN) History of : No (09/01/2016 23:34:Shelia Ridley RN) History of D (Rh) Sensitization: No (09/01/2016 23:34:Shelia Ridley RN) History Recurrent Loss/Stillborn: No (09/01/2016 23:34:Shelia Ridley RN) History Depression/PP Depression: No (09/01/2016 23:34:Shelia Ridley RN) History of Uterine Anomaly/ERIN: No (09/01/2016 23:34:Shelia Ridley RN) History of Infertility: No (09/01/2016 23:34:Shelia Ridley RN) History of ART Treatment: No (09/01/2016 23:34:Shelia Ridley RN) History of ERIN: No (09/01/2016 23:34:Shelia Ridley RN) Comments Obstetrical History: G1: 08/2010- primary c/s in [place] for FTP; male @ 37 weeks, 7#5oz G2: 2011- SAB _8 weeks G3: 05/2013- 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, vaginal delivery of male at [facility]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 G4: 01/2014 - repeat c/s at [facility]; female @ 26 weeks- PROM w/cerclage G5: current (cerclage placed 06/20/16; weekly p17 injections) (09/01/2016 23:34:Shelia Ridley RN) MEDICAL HISTORY Med Hx Diabetes: No (09/01/2016 23:34:Shelia Ridley RN) Med Hx Hypertension: No (09/01/2016 23:34:Shelia Ridley RN) Med Hx Heart Disease: No (09/01/2016 23:34:Shelia Ridley RN) Med Hx Autoimmune Disorder: No (09/01/2016 23:34:Shelia Ridley RN) Med Hx Kidney Disease/UTI: No (09/01/2016 23:34:Shelia Ridley RN) Med Hx Neurologic/Epilepsy: No (09/01/2016 23:34:Shelia Ridley RN) Med Hx Psychiatric Disorders: No (09/01/2016 23:34:Shelia Ridley RN) Med Hx Hepatitis/Liver Disease: No (09/01/2016 23:34:Shelia Ridley RN) Med Hx Varicosities/Phlebitis: No (09/01/2016 23:34:Shelia Ridley RN) Med Hx Thyroid Dysfunction: No (09/01/2016 23:34:Shelia Ridley RN) Med Hx Trauma/Violence: No (09/01/2016 23:34:Shelia Ridley RN) Med Hx Blood Transfusion: No (09/01/2016 23:34:Shelia Rildey RN) Med Hx Pulmonary (Asthma,TB): Yes (09/01/2016 23:34:Shelia Ridley RN) Med Hx Breast: No (09/01/2016 23:34:Shelia Ridley RN) Med Hx AGENT SPA DESK Surgery: No (09/01/2016 23:34:Shelia Ridley RN) Med Hx Hospitalization/Surgery: Yes (09/01/2016 23:34:Shelia Ridley RN) Med Hx Anesthetic Complications: No (09/01/2016 23:34:Shelia Ridley RN) Med Hx Abnormal Pap Smear: No (09/01/2016 23:34:Shelia Ridley RN) Other Medical Diseases: No (09/01/2016 23:34:Shelia Ridley RN) Med Hx Significant Family Hx: No (09/01/2016 23:34:Shelia Ridley RN) Details of Med/Surg Hx: asthma (no inhaler needed currently); prior c/s x2 (09/01/2016 23:34:Shelia Ridley RN) INFECTIOUS HISTORY Inf Hx Gonorrhea: Yes (09/01/2016 23:34:Shelia Ridley RN) Inf Hx Chlamydia: Yes (09/01/2016 23:34:Shelia Ridley RN) Inf Hx Syphilis: No (09/01/2016 23:34:Shelia Ridley RN) Inf Hx HIV/AIDS: No (09/01/2016 23:34:Shelia Ridley RN) Inf Hx Human Papilloma Virus: No (09/01/2016 23:34:Shelia Ridley RN) Inf Hx Pt/Partner Genital Herpes: No (09/01/2016 23:34:Shelia Ridley RN) Inf Hx Tuberculosis/Exposure: No (09/01/2016 23:34:Shelia Ridley RN) Inf Hx Hepatitis B,C: No (09/01/2016 23:34:Shelia Ridley RN) Inf Hx Rash or Viral Illness: No (09/01/2016 23:34:Shelia Ridley RN) Details of Infectious Hx: gonorrhea in 2010 (treated); chlamydia in 2010 (treated) (09/01/2016 23:34:Shelia Ridley RN) GENETIC HISTORY Gen Hx Age >=35 at [place]: No (09/01/2016 23:34:Shelia Ridley RN) Gen Hx Thalassemia: No (09/01/2016 23:34:Shelia Ridley RN) Gen Hx Congenital Heart Defect: No (09/01/2016 23:34:Shelia Ridley RN) Gen Hx Neural Tube Defect: No (09/01/2016 23:34:Shelia Ridley RN) Gen Hx Down's Syndrome: No (09/01/2016 23:34:Shelia Ridley RN) Gen Hx David-Sachs: No (09/01/2016 23:34:Shelia Ridley RN) Gen Hx Bradley: No (09/01/2016 23:34:Shelia Ridley RN) Gen Hx Familial Dysautonomia: No (09/01/2016 23:34:Shelia Ridley RN) Gen Hx Sickle Cell Disease/Trait: No (09/01/2016 23:34:Shelia Ridley RN) Gen Hx Hemophilia/Blood Disorder: No (09/01/2016 23:34:Shelia Ridley RN) Gen Hx Muscular Dystrophy: No (09/01/2016 23:34:Shelia Ridley RN) Gen Hx Cystic Fibrosis: No (09/01/2016 23:34:Shelia Ridley RN) Gen Hx Huntingtons Chorea: No (09/01/2016 23:34:Shelia Ridley RN) Gen Hx Mental Retardation/Autism: No (09/01/2016 23:34:Shelia Ridley RN) Gen Hx Tested for Fragile X: No (09/01/2016 23:34:Shelia Ridley RN) Gen Hx Maternal Metabolic DO: No (09/01/2016 23:34:Shelia Ridley RN) Gen Hx Pt Father or FOB Defect: No (09/01/2016 23:34:Shelia Ridley RN) Gen Hx Other Genetic History: No (09/01/2016 23:34:Shelia Ridley RN) Gen Hx Drugs/Meds since LMP: Yes (09/01/2016 23:34:Shelia Ridley RN) Gen Hx Medications: PNV, flagyl, iron, albuterol (09/01/2016 23:34:Shelia Ridley RN)
[2016-11-16] MEDS: KETOROLAC TROMETHAMINE INJ/PF 30 MG/1 ML SDV IV SCH (06:14)
--- NOTE | 2016-11-16 06:16 | L&D Care Plan ---
LD CARE PLANS Datetime Report Generated by CPN: 11/16/2016 06:15 Datetime: 11/15/2016 10:19 Pain State: Risk For (Doreen Devi RN) Related To: Labor and Delivery Process; Surgical Procedure; Complication(s) of ; Disease Process; Treatment and Procedures; Post (Doreen Devi RN) Goal(s): Patients Pain will be Assessed and Managed; Patient will Verbalize Adequate Relief of Pain or the Ability to [place] with Current Pain (Doreen Devi RN) Interventions: Assess Pain Severity on Scale of 0 (None) to 5 (Severe); Assess Type, Location and Intensity of Pain Each Time Client Reports Discomfort and Notify Provider if Unusal Pain Develops; Encourage Proper Breathing and Relaxation Techniques; Offer Alternatives Such as Repositioning, Calm Environment, Massages, Diversional Activities, Ice Pack, Splinting, and Ambulation; Administer Analgesics as Ordered; Assist with Epidural Placement as Appropriate; Evaluate Therapeutic Effectiveness of Medication and Treatments (Doreen Devi RN) Outcome: Patient will Report Absence or Relief of Pain Consistent with Established Pain Goal (Doreen Devi RN) Status: Ongoing (Doreen Devi RN) Outcome: Patient will have a Decrease in Signs and Symptoms of Discomfort (Doreen Devi RN) Status: Ongoing (Doreen Devi RN) Outcome: Pain will be Controlled During Procedures (Doreen Devi RN) Status: Ongoing (Doreen Devi RN) Anxiety State: Risk For (Doreen Devi RN) Related To: Labor and Delivery Process; Surgical Procedure; Medical Interventions; Significant Life Event (Doreen Devi RN) Goal(s): Patient will have Decreased Anxiety and be able to Function at Acceptable Levels (Doreen Devi RN) Interventions: Assess Verbal and Nonverbal Behavioral Indicators of Anxiety; Assist Patient to Identify and Verbalize Symptoms of Anxiety; Identify and Demonstrate Techniques to Control Anxiety; Assist Patient with Coping Mechanisms to Manage Anxiety; Provide Theraputic Touch for the Patient; Explain to Patient, Using a Calm Reassuring Approach and Nonmedical Terms, All Activities, Procedures, and Concerns; Instruct Patient and Family about Post Discharge Care, Limitations, Symptoms to Report and Resources Available (Doreen Devi RN) Outcome: Patient will Identify, Verbalize and Demonstrate Techniques to Control Anxiety (Doreen Devi RN) Status: Ongoing (Doreen Devi RN) Outcome: Patient's Posture, Facial Expressions, Gestures and Activity Level will Reflect Decreased Anxiety (Doreen Devi RN) Status: Ongoing (Doreen Devi RN) Outcome: Patient will Verbalize a Sense of Control and/or Acceptance of the Situation (Doreen Devi RN) Status: Ongoing (Doreen Devi RN) Outcome: Patient will Identify and Utilize Support Person (Doreen Devi RN) Status: Ongoing (Doreen Devi RN) Knowledge Deficit State: Risk For (Doreen Devi RN) Related To: Labor and Delivery Process; Surgical Procedures; Treatment and Procedures (Doreen Devi RN) Goal(s): Patient will Accurately Verbalize Understanding of Plan of Care and Treatment; Patient and Family will Accurately Verbalize Understanding of the Disease Process (Doreen Devi RN) Interventions: Assess Motivation and Willingness of Patient/Family to Learn; Assess Preferred Learning Mode: One to One Instruction, Reading, Videos, Group Discussion or Demonstration; Assess Barriers to Learning: Pain, Emotional State, Language Barrier, Cognitive Impairment, Visual or Hearing Deficits; Assess Patient and Family Knowledge of Disease Process, Medications and Treatment; Discuss Therapy and/or Treatment Options, Describe Rationale Behind Management, Therapy and Treatment Recommendations; Instruct Patient and Family on Signs and Symptoms to Report; Instruct Patient and Family on Medication Effects and Side Effects; Provide Appropriate and Timely Education Using Multiple Techniques; Provide Patient and Family with Support Group Information and Resources; Give Clear and Thorough Explanations and Demonstrations (Doreen Devi RN) Outcome: Patient and Family will Verbalize Understanding of Condition, Treatment and Signs and Symptoms to Report (Doreen Devi RN) Status: Ongoing (Doreen Devi RN) Outcome: Patient will Identify Perceived Learning Needs and Express Motivation to Learn (Doreen Devi RN) Status: Ongoing (Doreen Devi RN) Outcome: Patient will Verbalize Understanding of Desired Content, and/or Performs Desired Skill Prior to Discharge (Doreen Devi RN) Status: Ongoing (Doreen Devi RN) Infection State: Risk For (Doreen Devi RN) Related To: Surgical Procedures; Invasive Procedures (Doreen Devi RN) Goal(s): The Patient will be Free of Infection, Vital Signs Stable and Lab Work within Normal Parameters (Doreen Devi RN) Interventions: Instruct and Reinforce Proper Handwashing, Hygiene, and Care Techniques to Patient and Family; Monitor Vital Signs; Monitor Patient for the Following Signs of Infection: Fever, Abdominal Tenderness, Unusual Discharge; Monitor Aminiotic Fluid, Urine and Lochia for Color and Odor; Observe Wounds, Incisions and Invasive Line Sites for Redness, Drainage and Edema; Assess IV Sites per Hospital Policy; Monitor Lab and Test Results and Notify Provider of Abnormal Findings; Assess Nutritional Status and Promote Good Nutrition (Doreen Devi RN) Outcome: Patient will Remain Free of Infection (Doreen Devi RN) Status: Ongoing (Doreen Devi RN) Outcome: Infection will be Recognized Early to Allow for Prompt Treatment (Doreen Devi RN) Status: Ongoing (Doreen Devi RN) Outcome: Patient will have Vital Signs Within Expected Range (Doreen Devi RN) Status: Ongoing (Doreen Devi RN) Fluid Volume State: Risk For (Doreen Devi RN) Related To: Surgical Procedures; Anesthesia (Doreen Devi RN) Goal(s): Patient will Achieve and Maintain a Balanced Fluid Volume Status; Hemodynamically Stable (Doreen Devi RN) Interventions: Monitor Vital Signs; Auscultate Breath Sounds; Monitor Patient for Skin Turgor, Mucous Membranes, Dry Skin, Weakness, Headaches and Confusion; Provide Oral Fluids as Ordered; Initiate and Maintain Intravenous Fluids as Ordered; Monitor Intake and Output as Indicated Per Patient Status; Accurately Measure Blood Loss; Monitor Lab and Test Results as Obtained and Notify Provider of Abnormal Findings; Monitor Patient's Weight (Doreen Devi RN) Outcome: Patient will have Clear Lung Sounds (Doreen Devi RN) Status: Ongoing (Doreen Devi RN) Outcome: Patient will have Vital Signs within Expected Range (Doreen Devi RN) Status: Ongoing (Doreen Devi RN) Outcome: Urine Output will be within Expected Range (Doreen Devi, RN) Status: Ongoing (Doreen Devi, RN) Outcome: Patient will have Minimal Generalized or Upper Extremity Edema (Doreen Devi, RN) Status: Ongoing (Doreen Devi RN) Injury State: Risk For (Doreen Devi RN) Related To: Labor and Delivery Process; Anesthesia (Doreen Devi RN) Goal(s): Patient will Remain Free from Injury (Doreen Devi RN) Interventions: Monitoring as per Hospital Protocol; Assess Neurological Status; Perform Risk Assessment of Patients with Induction and ; Perform Fall Risk Assessment and Prevention per Hospital Protocol; Perform DVT Risk Assessment and Prophylaxis per Hospital Protocol; Ensure that Oxygen, Suction, and Resuscitation Medications and Equipment are Readily Available; Confirm Patient ID Prior to Procedure(s) and Medication Administration per Hospital Policy (Doreen Devi RN) Outcome: Successful Fall Risk Prevention (Doreen Devi RN) Status: Ongoing (Doreen Devi RN) Outcome: Patient will Deliver Infant without Adverse [place] (Doreen Devi RN) Status: Ongoing (Doreen Devi RN) Outcome: Patient's Neurological Status will Remain Stable (Doreen Devi RN) Status: Ongoing (Doreen Devi RN) Impaired Skin Integrity State: Risk For (Doreen Devi RN) Related To: Surgical Procedures; Invasive Procedures (Doreen Devi RN) Goal(s): Patient will Maintain Optimal Skin Integrity, Free of Breakdown, Injury or Infection (Dorene Devi RN) Interventions: Complete Screening for Pressure Ulcer Risk and Initiate Protocol per Hospital Policy; Monitor Site of Skin Impairment for Color Changes, Redness, Swelling, Warmth, Pain or Other Signs of Infection; Encourage and Assist with Position Changes; Monitor Patient's Mobility Status; Provide Adequate Nutrition and Fluids; Teach Patient Appropriate Hygienic Care; Teach Patient/Family Skin Care Management (Doreen Devi, RN) Outcome: Patient will not have Evidence of Injury Such as Skin Breakdown, Scrapes, Cuts, or Bruising (oDreen Devi, RN) Status: Ongoing (Doreen Devi RN) Outcome: Patient will Report Any Altered Sensation or Pain at Site of Skin Impairment (Doreen Devi RN) Status: Ongoing (Doreen Devi, RN) Outcome: Patients Incisions and Wounds will be without Signs or Symptoms of Infection (Doreen Devi RN) Status: Ongoing (Doreen Devi, RN) Outcome: Patient will Demonstrate Understanding of Plan to Heal Skin and Prevent Reinjury and Verbalize Risk Factors (Doreen Devi, RN) Status: Ongoing (Doreen Devi, RN) Parenting Impaired State: Not Applicable (Doreen Devi, RN) Nutrition State: Not Applicable (Doreen Devi, RN) Grieving State: Not Applicable (Doreen Devi, RN) Additional Care Plan State: Not Applicable
[2016-11-16 07:24] LABS: MEAN CORPUSCULAR VOLUME 84 fl (80-97)
[2016-11-16 07:35] LABS: HEMATOCRIT 27.8 % (36.0-47.0); HGB HCT DIFFERENCE -0.2; MEAN CORPUSCULAR HEMOGLOBIN 27.8 pg (27.0-33.4); MEAN CORPUSCULAR HGB CONC 33.1 g/dL (32.0-36.0); RED BLOOD COUNT 3.31 10^6/uL (3.72-5.28); RED CELL DISTRIBUTION WIDTH 15.3 % (11.5-14.0); WHITE BLOOD COUNT 15.8 10^3/uL (4.0-10.5)
[2016-11-16 07:37] LABS: HEMOGLOBIN 9.2 g/dL (12.0-15.5)
--- NOTE | 2016-11-16 09:54 | PDOC PROGRESS REPORT ---
Subjective-OB Subjective: Post Delivery Day: 26 year old. Denies any needs at this time. Physical Exam (OB) Vital Signs: Temp Pulse Resp BP Pulse Ox 97.7 F 81 16 116/66 100 11/16/16 07:44 11/16/16 07:44 11/16/16 07:44 11/16/16 07:44 11/16/16 07:44 Intake & Output 11/15/16 11/16/16 11/17/16 06:59 06:59 06:59 Intake Total 1600 Output Total 1375 Balance 225 Weight 73.6 kg - Incision: Well Approximated Closure Type: Surgical Glue - Lochia Lochia Amount: Scant < 10 ml Lochia Color: Rubra/Red - Abdomen Description: Soft, Round Hernia Present: No Bowel Sounds: Normoactive Flatus Presence: Present Stool: No Fundal Description: Firm, Midline Fundal Height: u/u - u/2 Objective-Diagnostic Laboratory: 11/16/16 07:10 11/15/16 11/15/16 11/15/16 09:51 10:40 10:40 WBC 10.3 RBC 3.92 Hgb 11.2 L Hct 32.8 L MCV 84 MCH 28.4 MCHC 34.0 RDW 15.1 H Plt Count 140 L Seg Neutrophils % 80.7 H Lymphocytes % 11.8 L Monocytes % 6.0 Eosinophils % 1.3 Basophils % 0.2 Absolute Neutrophils 8.3 H Absolute Lymphocytes 1.2 Absolute Monocytes 0.6 Absolute Eosinophils 0.1 Absolute Basophils 0.0 Urine Color YELLOW Urine Appearance CLOUDY Urine pH 7.0 Ur Specific [place] 1.010 Urine Protein 30 H Urine Glucose (UA) NEGATIVE Urine Ketones NEGATIVE Urine Blood MODERATE H Urine Nitrite NEGATIVE Ur Leukocyte Esterase LARGE H Urine WBC (Auto) 114 Urine RBC (Auto) 26 Blood Type O POSITIVE Antibody Screen NEGATIVE 11/16/16 07:10 WBC 15.8 H RBC 3.31 L Hgb 9.2 L Hct 27.8 L MCV 84 MCH 27.8 MCHC 33.1 RDW 15.3 H Plt Count 150 Seg Neutrophils % Lymphocytes % Monocytes % Eosinophils % Basophils % Absolute Neutrophils Absolute Lymphocytes Absolute Monocytes Absolute Eosinophils Absolute Basophils Urine Color Urine Appearance Urine pH Ur Specific [place] Urine Protein Urine Glucose (UA) Urine Ketones Urine Blood Urine Nitrite Ur Leukocyte Esterase Urine WBC (Auto) Urine RBC (Auto) Blood Type Antibody Screen
[2016-11-16] MEDS: DOCUSATE SODIUM 100 MG CAPSULE PO SCH ×2 (10:13→17:13)
[2016-11-16] MEDS: PRENATAL VITAMIN W-O CA NO5/FE FUMARATE/FA CAPSULE PO SCH (10:13)
[2016-11-16] MEDS: IBUPROFEN 800 MG TABLET PO SCH ×3 (12:29→23:07)
[2016-11-17] MEDS: IBUPROFEN 800 MG TABLET PO SCH ×2 (05:28→11:22)
[2016-11-17] MEDS: OXYCODONE-ACETAMINOPHEN 5-325 MG TABLET PO PRN (05:29)
[2016-11-17 07:47] VITALS: BP 93/52
[2016-11-17] MEDS: PRENATAL VITAMIN W-O CA NO5/FE FUMARATE/FA CAPSULE PO SCH (09:12)
[2016-11-17] MEDS: DOCUSATE SODIUM 100 MG CAPSULE PO SCH (09:13)
--- NOTE | 2016-11-17 09:16 | PDOC PROGRESS REPORT ---
Subjective-OB Subjective: Post Delivery Day: 26 year old. Denies any needs at this time. Ready to go home. Physical Exam (OB) Vital Signs: Temp Pulse Resp BP Pulse Ox 98.3 F 93 16 93/52 L 99 11/17/16 07:46 11/17/16 07:46 11/17/16 07:46 11/17/16 07:46 11/17/16 07:46 Intake & Output 11/16/16 11/17/16 11/18/16 06:59 06:59 06:59 Intake Total 1600 300 Output Total 1375 Balance 225 300 Weight 73.6 kg - Incision: Well Approximated Closure Type: Surgical Glue - Lochia Lochia Amount: Small 10-25 ml Lochia Color: Rubra/Red - Abdomen Description: Soft Hernia Present: No Bowel Sounds: Normoactive Flatus Presence: Present Stool: No Fundal Description: Firm, Midline Fundal Height: u/u - u/2 Objective-Diagnostic Laboratory: 11/16/16 07:10
--- NOTE | 2016-11-17 09:23 | PDOC DISCHARGE SUMMARY ---
Final Diagnosis Discharge Date: 11/17/16 - Final Diagnosis (1) Cervical cerclage suture present, antepartum Is this a current diagnosis for this admission?: Yes (2) Delivery by elective caesarean section Is this a current diagnosis for this admission?: Yes (3) History of asthma Is this a current diagnosis for this admission?: Yes (4) History of cervical incompetence Is this a current diagnosis for this admission?: Yes (5) Is this a current diagnosis for this admission?: Yes (6) Transverse presentation delivered Is this a current diagnosis for this admission?: Yes Discharge Data - Discharge Medication Home Medications: Pnv95/Iron Fum/Folic Acid [ Caplet] 1 each PO DAILY 06/18/16 Docusate Sodium [Colace 100 mg Capsule] 100 mg PO BID #30 capsule 11/17/16 Ibuprofen [Motrin 800 mg Tablet] 800 mg PO Q6 #30 tablet 11/17/16 Oxycodone HCl/Acetaminophen [Percocet 5-325 mg Tablet] 1 tab PO Q4HP PRN #20 tablet 11/17/16 Gestational Age: 36.4 wks Reason(s) for Admission: Onset of Labor, PROM Procedures: Ultrasound Intrapartum Procedure(s): : Low Cervical, Transverse - [place] Data Baby 1 Female at 1 minute: 8 at 5 minutes: 9 Weight: 3.005 kg Home with Mother: Yes Complications: No - Diagnosis Test Laboratory: Temp Pulse Resp BP Pulse Ox 98.3 F 93 16 93/52 L 99 11/17/16 07:46 11/17/16 07:46 11/17/16 07:46 11/17/16 07:46 11/17/16 07:46 11/15/16 11/15/16 11/16/16 09:51 10:40 07:10 RBC 3.92 3.31 L Hgb 11.2 L 9.2 L Hct 32.8 L 27.8 L Urine Opiates Screen NEGATIVE - Discharge information/Instructions Discharge Activity: Activity As Tolerated, Balance Activity w/Rest, No Lifting Over 10 Pounds, No Lifting/Push/Pulling, Non-Ambulatory Child, Pelvic Rest, Slowly Increase Activity, No tub bath Discharge Diet: Regular Disposition: HOME, SELF-CARE Follow up with: [facility] in: 1, Weeks
== END 2016-11-17 11:53 | disposition home or self-care (01) | DRG 765 ==
LOC: LC 09:41 → LR 10:26 → 2S 16:34
PROVIDERS: ADMIT Student in an Organized Health Care Education/Training Program; ATTEND Student in an Organized Health Care Education/Training Program
PROC: 10D00Z1 Extraction of Products of Conception, Low, Open Approach (ICD-10-PCS; principal; 2016-11-15)
PROC: 0UCC7ZZ Extirpation of Matter from Cervix, Via Natural or Artificial Opening (ICD-10-PCS; 2016-11-15)
PROC: 0HN7XZZ Release Abdomen Skin, External Approach (ICD-10-PCS; 2016-11-15)
PROC: 0HB7XZZ Excision of Abdomen Skin, External Approach (ICD-10-PCS; 2016-11-15)
PROC: 4A1HXCZ Monitoring of Products of Conception, Cardiac Rate, External Approach (ICD-10-PCS; 2016-11-15)
DX: O34.211 Maternal care for low transverse scar from previous cesarean delivery (principal); O34.33 Maternal care for cervical incompetence, third trimester; O42.913 Preterm premature rupture of membranes, unspecified as to length of time between rupture and onset of labor, third trimester; O34.212 Maternal care for vertical scar from previous cesarean delivery; O99.52 Diseases of the respiratory system complicating childbirth; J45.909 Unspecified asthma, uncomplicated; O64.0XX0 Obstructed labor due to incomplete rotation of fetal head, not applicable or unspecified; N85.8 Other specified noninflammatory disorders of uterus; Z37.0 Single live birth; Z3A.36 36 weeks gestation of pregnancy
CPT/HCPCS: 1961; 36415; 80307; 81001; 84112; 85025; 85027; 86592; 86850; 86900; 86901; 88307; 94799; C1765; J0690; J1170; J1885; J2175; J2250; J2270; J2370; J2405; J2590; J2704; J2765; J3010; J3490; J7120

== ENCOUNTER 2017-04-08 22:26 | Emergency (ER) | payer MEDICAID ==
[2017-04-08 23:24] LABS: ABSOLUTE EOSINOPHILS # (AUTO) 0.1 10^3/uL (0.0-0.6); ABSOLUTE LYMPHOCYTES (AUTO) 1.8 10^3/uL (0.5-4.7); ABSOLUTE MONOCYTES (AUTO) 0.7 10^3/uL (0.1-1.4); BASOPHILS % (AUTO) 0.3 % (0-2); EOSINOPHILS % (AUTO) 0.8 % (0-6); HEMATOCRIT 33.3 % (36.0-47.0); HEMOGLOBIN 11.1 g/dL (12.0-15.5); MEAN CORPUSCULAR HGB CONC 33.4 g/dL (32.0-36.0); MEAN CORPUSCULAR VOLUME 84 fl (80-97); RED BLOOD COUNT 3.97 10^6/uL (3.72-5.28); RED CELL DISTRIBUTION WIDTH 14.7 % (11.5-14.0); SEGMENTED NEUTROPHILS % (AUTO) 60.9 % (42-78); WHITE BLOOD COUNT 6.6 10^3/uL (4.0-10.5)
[2017-04-08 23:33] LABS: ALANINE AMINOTRANSFERASE 16 U/L (9-52); ALKALINE PHOSPHATASE 64 U/L (38-126); ANION GAP 10 (5-19); ASPARTATE AMINO TRANSFERASE 15 U/L (14-36); BILIRUBIN,DIRECT 0.3 mg/dL (0.0-0.4); BILIRUBIN,TOTAL 0.5 mg/dL (0.2-1.3); BLOOD UREA NITROGEN 13 mg/dL (7-20); CALCIUM 9.5 mg/dL (8.4-10.2); CARBON DIOXIDE 24 mmol/L (22-30); CHLORIDE 105 mmol/L (98-107); CREATININE RESULT 0.83 mg/dL (0.52-1.25); GLUCOSE 99 mg/dL (75-110); LIPASE 95.9 U/L (23-300); POTASSIUM 3.8 mmol/L (3.6-5.0); SODIUM 139.1 mmol/L (137-145); TOTAL PROTEIN 7.8 g/dL (6.3-8.2)
[2017-04-08 23:34] LABS: APPEARANCE,URINE SLIGHTLY-CLOUDY; BILIRUBIN,URINE NEGATIVE (NEGATIVE); GLUCOSE, URINE NEGATIVE (NEGATIVE); KETONES,URINE NEGATIVE (NEGATIVE); LEUKOCYTE ESTERASE,URINE TRACE (NEGATIVE); NITRITE,URINE NEGATIVE (NEGATIVE); PROTEIN,URINE NEGATIVE (NEGATIVE)
[2017-04-09 03:03] VITALS: BP 118/67
--- NOTE | 2017-04-09 03:13 | ER Document Report ---
ED General - General Chief Complaint: Lower Abdominal Pain Stated Complaint: ABDOMINAL PAIN Time Seen by Provider: 04/09/17 00:37 TRAVEL OUTSIDE OF THE [place] IN LAST 30 DAYS: No - HPI Patient complains to provider of: Lower abdominal pain Notes: Patient coming in for lower abdominal pain. Patient states she found a tampon that she left in for approximately 1 week. Patient states does have slight vaginal discharge and odor at this time. Patient denies any fever chills nausea vomiting diarrhea. Denies any dysuria. - Related Data Allergies/Adverse Reactions: No Known Allergies Allergy (Verified 11/15/16 10:10) Past Medical History - Social History Smoking Status: Unknown if Ever Smoked Family History: Reviewed & Not Pertinent - Past Medical History Cardiac Medical History: Denies: Hx Coronary Artery Disease, Hx Heart Attack, Hx Hypertension Pulmonary Medical History: Reports: Hx Asthma - inhalers Denies: Hx Bronchitis, Hx COPD, Hx Pneumonia Neurological Medical History: Denies: Hx Cerebrovascular Accident, Hx Seizures Renal/ Medical History: Denies: Hx Peritoneal Dialysis Musculoskeltal Medical History: Denies Hx Arthritis Past Surgical History: Reports: Hx Section - x1 - Immunizations Hx Diphtheria, Pertussis, Tetanus Vaccination: Yes Review of Systems - Review of Systems Constitutional: No symptoms reported EENT: No symptoms reported Cardiovascular: No symptoms reported Respiratory: No symptoms reported Gastrointestinal: Abdominal pain Genitourinary: No symptoms reported Female Genitourinary: No symptoms reported Musculoskeletal: No symptoms reported Skin: No symptoms reported Hematologic/Lymphatic: No symptoms reported Neurological/Psychological: No symptoms reported Physical Exam - Vital signs Vitals: Temp Pulse Resp BP Pulse Ox 97.6 F 64 16 140/88 H 100 04/08/17 23:08 04/08/17 23:08 04/08/17 23:08 04/08/17 23:08 04/08/17 23:08 Interpretation: Normal - General General appearance: Appears well, Alert - HEENT Head: Normocephalic, Atraumatic Eyes: Normal Pupils: PERRL - Respiratory Respiratory status: No respiratory distress Chest status: Nontender Breath sounds: Normal Chest palpation: Normal - Cardiovascular Rhythm: Regular Heart sounds: Normal auscultation Murmur: No - Abdominal Inspection: Normal Distension: No distension Bowel sounds: Normal Tenderness: Nontender Organomegaly: No organomegaly - Genitourinary External exam: Normal Speculum exam: Other - White vaginal discharge Bimanuel exam: Normal - Back Back: Normal, Nontender - Extremities General upper extremity: Normal inspection, Nontender, Normal color, Normal ROM , Normal temperature General lower extremity: Normal inspection, Nontender, Normal color, Normal ROM , Normal temperature, Normal weight bearing. No: Mamta's sign - Neurological Neuro grossly intact: Yes Cognition: Normal Orientation: AAOx4 Nora Coma Scale Eye Opening: Spontaneous Nora Coma Scale Verbal: Oriented [place] Coma Scale Motor: Obeys Commands Nora Coma Scale Total: 15 Speech: Normal Motor strength normal: LUE, RUE, LLE, RLE Sensory: Normal - Psychological Associated symptoms: Normal affect, Normal mood - Skin Skin Temperature: Warm Skin Moisture: Dry Skin Color: Normal Course - Re-evaluation Re-evalutation: 04/09/17 05:04 Patient coming in for evaluation of abdominal pain after retaining a tampon for approximately 1 week. Workup here does not show any critical pathology. Did explain to the patient that we did test her for gonorrhea chlamydia though she can call back in the morning for the results of these tests states that she does not want to be treated at this time. Patient will be discharged home follow-up primary care physician. - Vital Signs Vital signs: Temp Pulse Resp BP Pulse Ox 98.0 F 63 16 118/67 100 04/09/17 03:01 04/09/17 03:01 04/09/17 03:01 04/09/17 03:01 04/09/17 03:01 - Laboratory Result Diagrams: 04/08/17 23:02 04/08/17 23:02 Laboratory results interpreted by me: 04/08/17 04/08/17 23:02 23:02 Hgb 11.1 L Hct 33.3 L RDW 14.7 H Urine Blood MODERATE H Urine Urobilinogen 4.0 H Ur Leukocyte Esterase TRACE H Discharge - Discharge Clinical Impression: Lower abdominal pain, Vaginal discharge Condition: Good Disposition: HOME, SELF-CARE Instructions: Abdominal Pain ([facility]) Additional Instructions: Follow-up with your primary care physician. Return to the ER symptoms worsen. If you continue to have discharge and smell in the next few days he may use an [id number] symptom cleansing product. Forms: Return to Work
[2017-04-09 03:31] LABS: CHLAM PCR NOT DETECTED (NOT DETECT)
== END 2017-04-09 03:17 | disposition home or self-care (01) ==
LOC: ER 22:26
DX: R10.30 Lower abdominal pain, unspecified (principal); N89.8 Other specified noninflammatory disorders of vagina
CPT/HCPCS: 36415; 80053; 81001; 81025; 83690; 85025; 87210; 87491; 87591; 99284